=== PATIENT | male | born 1965 | race Caucasian/White ===

== ENCOUNTER 2019-05-15 22:48 | Emergency (ER) | payer MEDICAID ==
[~2019-05-15] VITALS: Ht 177.8 cm; Wt 99.8 kg
[~2019-05-15 22:48] MED LIST: AMLO5TAB15 PO; CIPR-173 PO
[2019-05-15 23:58] LABS: Basophils # (auto) 0.1 10 ^3/uL (0-0.2); Basophils % (auto) 0.7 % (0.0-2.0); Eosinophils # (auto) 0.3 10 ^3/uL (0-0.8); Eosinophils % (auto) 3.2 % (0.0-7.0); Hematocrit 43.9 % (41.0-53.0); Hemoglobin 13.7 g/dL (13.5-17.5); Lymphocytes % (auto) 12.1 % (10.0-50.0); Mean Corpuscular Hemoglobin 23.1 pg (28.0-32.0); Mean Corpuscular Hgb Conc. 31.2 g/dL (32.0-36.0); Mean Corpuscular Volume 74.1 fL (80.0-100.0); Monocytes # (auto) 0.8 10 ^3/uL (0-1.3); Monocytes % (auto) 9.7 % (0.0-12.0); Neutrophils % (auto) 74.3 % (37.0-80.0); Nucleated Red Blood Cells % 0.1 %; Platelet Count (auto) 382 10^3/uL (140-450); Red Blood Cells 5.93 10^6/uL (4.5-5.90); Red Cell Distribution Width 16.6 % (11.8-14.3); White Blood Cell 8.1 10^3/uL (4.4-10.8)
[2019-05-16 00:14] LABS: Alanine Aminotransferase 24 U/L (16-61); Albumin 3.6 g/dL (3.4-5.0); Anion Gap 5 (5-15); Aspartate Aminotransferase 29 U/L (15-37); BUN/Creatinine Ratio 11.5; Blood Urea Nitrogen 13 mg/dL (7-18); Calcium 8.9 mg/dL (8.5-10.1); Carbon Dioxide 28 mmol/L (21-32); Chloride 106 mmol/L (98-107); GFR African American 87 mL/min; GFR Non-African American 72 mL/min; Glucose 110 mg/dL (74-106); Sodium 139 mmol/L (136-145)
[2019-05-16 00:19] LABS: Alkaline Phosphatase 95 U/L (45-117); Bilirubin, Total 0.4 mg/dL (0.2-1.0); Total Protein 8.1 g/dL (6.4-8.2)
[2019-05-16] MEDS ORDERED: SODIUM CHLORIDE 0.9% 2,000 ML IV ONE (04:00)
[2019-05-16 05:33] VITALS: BP 162/111
== END 2019-05-16 06:02 | disposition home or self-care (01) ==
LOC: EDBD 22:48 → ER 22:51
DX: F12.10 Cannabis abuse, uncomplicated (principal); R22.9 Localized swelling, mass and lump, unspecified; R53.1 Weakness; E11.9 Type 2 diabetes mellitus without complications; I10 Essential (primary) hypertension
CPT/HCPCS: 36415; 70450; 71045; 80053; 84484; 85025; 93005

== ENCOUNTER → 2019-08-04 | Emergency (ER) | payer MEDICAID ==
[~2019-08-04] VITALS: Ht 177.8 cm; Wt 99.8 kg
[2019-08-04 16:53] VITALS: BP 102/83
[2019-08-04 18:22] LABS: Basophils # (auto) 0 10 ^3/uL (0-0.2); Eosinophils # (auto) 0 10 ^3/uL (0-0.8); Hemoglobin 13.2 g/dL (13.5-17.5); Nucleated Red Blood Cells % 0.1 %
[2019-08-04 18:23] LABS: Basophils % (auto) 0.2 % (0.0-2.0); Eosinophils % (auto) 0.1 % (0.0-7.0); Hematocrit 42.8 % (41.0-53.0); Lymphocytes # (auto) 0.4 10 ^3/uL (0.4-5.4); Lymphocytes % (auto) 2.1 % (10.0-50.0); Mean Corpuscular Hemoglobin 21.1 pg (28.0-32.0); Mean Corpuscular Hgb Conc. 30.9 g/dL (32.0-36.0); Mean Corpuscular Volume 68.4 fL (80.0-100.0); Monocytes # (auto) 1.9 10 ^3/uL (0-1.3); Monocytes % (auto) 9.4 % (0.0-12.0); Neutrophils # (auto) 17.7 10 ^3/uL (1.6-8.6); Neutrophils % (auto) 88.2 % (37.0-80.0); Platelet Count (auto) 536 10^3/uL (140-450); Red Blood Cells 6.26 10^6/uL (4.5-5.90); Red Cell Distribution Width 17.8 % (11.8-14.3); White Blood Cell 20.1 10^3/uL (4.4-10.8)
[2019-08-04 18:36] LABS: Anion Gap 10 (5-15); Blood Urea Nitrogen 34 mg/dL (7-18); Calcium 9.3 mg/dL (8.5-10.1); Carbon Dioxide 25 mmol/L (21-32); Chloride 100 mmol/L (98-107); Glucose 135 mg/dL (74-106); Potassium 3.7 mmol/L (3.5-5.1); Sodium 135 mmol/L (136-145)
[2019-08-04 18:42] LABS: Alanine Aminotransferase 14 U/L (16-61); Alkaline Phosphatase 127 U/L (45-117); Aspartate Aminotransferase 14 U/L (15-37); BUN/Creatinine Ratio 16.4; Bilirubin, Total 1.6 mg/dL (0.2-1.0); GFR African American 43 mL/min; GFR Non-African American 36 mL/min; Total Protein 8.4 g/dL (6.4-8.2)
[2019-08-04 20:44] LABS: Albumin 2.8 g/dL (3.4-5.0)
== END | disposition left against medical advice (07) ==
LOC: ER 16:29
DX: R10.84 Generalized abdominal pain (principal); Z53.21 Procedure and treatment not carried out due to patient leaving prior to being seen by health care provider
CPT/HCPCS: 36415; 74176; 80053; 84484; 85025; 93005

== ENCOUNTER 2019-08-05 09:49 | Inpatient (IN) | payer MEDICAID ==
[~2019-08-05] VITALS: Ht 177.8 cm; Wt 74.6 kg
[2019-08-05] MEDS ORDERED: cefTRIAXone 1GM/50ML D5W 50 ML IV ONE (10:45)
[2019-08-05 11:10] LABS: Basophils # (auto) 0 10 ^3/uL (0-0.2); Eosinophils # (auto) 0 10 ^3/uL (0-0.8); Eosinophils % (auto) 0.1 % (0.0-7.0); Neutrophils # (auto) 10.4 10 ^3/uL (1.6-8.6); Nucleated Red Blood Cells % 0.1 %
[2019-08-05 11:12] LABS: Basophils % (auto) 0.2 % (0.0-2.0); Hematocrit 40.6 % (41.0-53.0); Hemoglobin 12.6 g/dL (13.5-17.5); Lymphocytes # (auto) 0.5 10 ^3/uL (0.4-5.4); Lymphocytes % (auto) 4.3 % (10.0-50.0); Mean Corpuscular Volume 67.7 fL (80.0-100.0); Monocytes # (auto) 1.7 10 ^3/uL (0-1.3); Monocytes % (auto) 13.2 % (0.0-12.0); Neutrophils % (auto) 82.2 % (37.0-80.0); Platelet Count (auto) 595 10^3/uL (140-450); Red Blood Cells 5.99 10^6/uL (4.5-5.90); White Blood Cell 12.7 10^3/uL (4.4-10.8)
[2019-08-05 11:24] LABS: Calcium 8.7 mg/dL (8.5-10.1); Potassium 3.2 mmol/L (3.5-5.1)
[2019-08-05 11:28] LABS: BUN/Creatinine Ratio 26.6; Bilirubin, Total 1.1 mg/dL (0.2-1.0); Total Protein 8.3 g/dL (6.4-8.2)
[2019-08-05] MEDS ORDERED: SODIUM CHLORIDE 0.9% 1,000 ML IV ONE ×3 (11:50→13:00)
[2019-08-05 12:45] LABS: Albumin 2.6 g/dL (3.4-5.0)
[2019-08-05] MEDS ORDERED: ACETAMINOPHEN 325 MG TAB PO PRN (13:00)
[2019-08-05] MEDS ORDERED: NITROGLYCERIN 0.4 MG SL TAB SL PRN (13:00)
[2019-08-05] MEDS ORDERED: MORPHINE SULF INJ 2 MG/ML SYRINGE 1ML IV PRN (13:00)
[2019-08-05] MEDS: metroNIDAZOLE 500MG/100ML 100 ML IV SCH ×2 (14:00→22:21)
[2019-08-05] MEDS: PIPERACILLIN-TAZOB 3.375GM 100 ML IV SCH ×2 (18:45→23:58)
[2019-08-05] MEDS: MORPHINE SULF INJ 2 MG/ML SYRINGE 1ML IV PRN (19:46)
[2019-08-05] MEDS: ONDANSETRON HCL 4 MG/2 ML VIAL IV PRN (19:46)
[2019-08-05 21:00] VITALS: BP 121/88
--- NOTE | 2019-08-05 21:00 | NUR ---
Telemetry admit from ER MILLIE COSTA admitted to Telemetry unit. Patient oriented to Jaja Alvarez, primary RN, unit, room, bed, and unit policies regarding patient care and visiting hours. Patient now on continuous telemetry monitoring, tele box #39 and telemetry reading on arrival to unit is Sinus Tachycardia 106bpm. Patient placed on bedside oxygen 2LNC, weighed by bed scale and encouraged to call if they need something. All questions and concerns addressed, patient verbalized understanding. Note: Patient is awake and alert x4. NGT to left nare, clamped at this time.
[2019-08-05 22:00] VITALS: BP 121/88
--- NOTE | 2019-08-05 23:55 | NUR ---
Family updated on pt status Spoke to patient's daughter after password verification, updated on patient's status and condition. All questions and concerns addressed, verbalized understanding.
--- NOTE | 2019-08-06 00:53 | NUR ---
URINE SAMPLE SENT TO LAB PATIENT VOIDED 300ML OF FRANCISCO JAVIER COLORED URINE VIA URINAL. URINE SAMPLE COLLECTED AND SENT TO LAB ORDERED.
[2019-08-06 01:18] LABS: Urine Amorphous Crystal FEW /hpf (None Seen); Urine Bacteria NONE SEEN /hpf (None Seen); Urine Blood Negative /uL (Negative); Urine Hyaline Cast FEW /lpf (0 - 2); Urine Mucus FEW (None Seen); Urine Specific Gravity 1.027 (1.001-1.035); Urine WBC 7 /hpf (0 - 3)
[2019-08-06 05:00] VITALS: BP 135/97
[2019-08-06] MEDS: metroNIDAZOLE 500MG/100ML 100 ML IV SCH ×2 (05:10→13:08)
[2019-08-06] MEDS: PIPERACILLIN-TAZOB 3.375GM 100 ML IV SCH ×3 (06:15→18:10)
--- NOTE | 2019-08-06 06:20 | NUR ---
NGT OUTPUT FOR SHIFT TOTAL OF 400ML BROWN/GREEN OUTPUT NOTED IN SUCTION CONTAINER. NGT REMAINS OF LIS, PATIENT TOLERATING WELL. NGT MEASUREMENT REMAINS AT 65CM TO LEFT NARE.
[2019-08-06 06:50] LABS: Eosinophils % (auto) 0.6 % (0.0-7.0); Monocytes # (auto) 1.1 10 ^3/uL (0-1.3)
[2019-08-06 06:52] LABS: Basophils # (auto) 0.1 10 ^3/uL (0-0.2); Basophils % (auto) 0.7 % (0.0-2.0); Eosinophils # (auto) 0 10 ^3/uL (0-0.8); Hematocrit 36.5 % (41.0-53.0); Hemoglobin 11.5 g/dL (13.5-17.5); Lymphocytes # (auto) 0.6 10 ^3/uL (0.4-5.4); Lymphocytes % (auto) 7.1 % (10.0-50.0); Mean Corpuscular Hemoglobin 21.3 pg (28.0-32.0); Mean Corpuscular Hgb Conc. 31.4 g/dL (32.0-36.0); Mean Corpuscular Volume 67.7 fL (80.0-100.0); Neutrophils # (auto) 6.5 10 ^3/uL (1.6-8.6); Neutrophils % (auto) 78.6 % (37.0-80.0); Platelet Count (auto) 528 10^3/uL (140-450); Red Cell Distribution Width 17.7 % (11.8-14.3); White Blood Cell 8.2 10^3/uL (4.4-10.8)
[2019-08-06 07:07] LABS: Albumin 2.2 g/dL (3.4-5.0); Calcium 8.6 mg/dL (8.5-10.1); Magnesium 2.8 mg/dL (1.6-2.6)
[2019-08-06 07:11] LABS: BUN/Creatinine Ratio 32.2; Bilirubin, Total 0.9 mg/dL (0.2-1.0); Total Protein 7.2 g/dL (6.4-8.2)
--- NOTE | 2019-08-06 07:20 | NUR ---
Opening Shift Note Assumed care of patient, alert and oriented x4. Respirations are even and unlabored. No S/S of distress/SOB. Patient reporting abdominal discomfort at this time. This nurse educated patient on pain management options, patient verbalized understanding. NGT to L nares is set to LIS with green fluid collected in suction canister. Bed is low, locked with 2x side rails up. Call light is within reach. Instructed on POC and to call for assist PRN, will continue to monitor for changes Q1hr and PRN.
[2019-08-06 09:00] VITALS: BP 131/85
[2019-08-06] MEDS: ENOXAPARIN SOD 40 MG/0.4 ML SYRINGE SC SCH (10:00)
[2019-08-06] MEDS: MORPHINE SULF INJ 2 MG/ML SYRINGE 1ML IV PRN ×2 (10:18→20:10)
--- NOTE | 2019-08-06 12:00 | NUR ---
Dr. Jared Mora at bedside Dr. Jt Mora at bedside updating patient on POC. MD. Mora informed patient of CT abdomen results; patient verbalized understanding. New orders received for nutrition (see orders). Will continue to monitor.
[2019-08-06] MEDS ORDERED: CLINIMIX PER PHARMACY 0 ML IV SCH (12:15)
--- NOTE | 2019-08-06 12:38 | NUR ---
IV insertion (R) FA IV access obtained, via clean sterile technique by inserting a 20 gauge catheter to the right forearm after 1 attempt(s). IV secured properly. No trauma to site. Patient tolerated well.
--- NOTE | 2019-08-06 12:40 | NUR ---
NGT OUTPUT Total output including shaper set up operator 800ml. Suction canister changed at this time. Will continue to monitor.
[2019-08-06] MEDS ORDERED: AMINO ACID INFUSION IN D5W 2,000 ML IV NR ×2 (12:45→20:00)
[2019-08-06 13:00] VITALS: BP 140/94
--- NOTE | 2019-08-06 13:06 | NUR ---
Nutrition Assessment Notes Please refer to link for full assessment notes. Est Energy needs: 9543-7304 kcals (20-23 kcal/kgBW) Est Protein needs: 75-94 gms/day (0.8-1.0 gm/kgBW) Will continue to monitor and reassess prn. Addendum: 08/06/19 at [address] Amended: Links added. Addendum: 08/07/19 at [address] Nutrition Consult/Followup Notes PLEASE NOTE: Pt is scheduled for TPN to run @ 50ml/hr, providing 648 kcals, 60g protein and 408 NPCs. Pt with inadequate energy intake from PN support aeb 30% to 35% of est caloric needs. Protein intake from PN support is inadequate aeb 64% to 80% protein needs. Please refer to full Assessment notes dated 08/06/19 for further details.
[2019-08-06] MEDS ORDERED: FLEET ENEMA(ADULT) 135 ML PR ONE (13:45)
--- NOTE | 2019-08-06 14:05 | NUR ---
Dr. Tacos Mendez at bedside updating patient on POC. No new orders received.
[2019-08-06] MEDS ORDERED: MIDAZOLAM HCL 5 MG/ML-1ML VIAL ONE (14:07)
[2019-08-06] MEDS ORDERED: SODIUM CHLORIDE LOCK 10 ML ONE (14:07)
[2019-08-06] MEDS ORDERED: diphenhdrAMINE HCL 50 MG/1 ML VL ONE (14:08)
[2019-08-06] MEDS ORDERED: fentaNYL CITRATE 100 MCG/2 ML VL ONE (14:08)
--- NOTE | 2019-08-06 14:15 | NUR ---
Dr. Ulloa at bedside Dr. Ulloa at bedside updating patient on POC. No new orders received at this time. Will continue to monitor.
--- NOTE | 2019-08-06 14:35 | NUR ---
Fleet enema Fleet enema given as ordered per MD. Patient tolerated well. Will continue to monitor.
--- NOTE | 2019-08-06 14:41 | NUR ---
Patient off unit Taken to GI lab for scheduled procedure with Dr. Jt Mora. NGT clamped. No distress noted upon departure.
--- NOTE | 2019-08-06 15:50 | NUR ---
Patient back in room Patient back from procedure with Dr. Jt Mora. Respirations are even and unlabored. No s/s of distress noted or stated. NGT set to LIS and draining dark brown fluid. Bed is low, locked with 2x side rails up. Call light is within reach. Will continue to monitor.
[2019-08-06 17:00] VITALS: BP 138/91
[2019-08-06] MEDS: InsuLIN REG 1unit/0.01ml Soln (100units/ml) SC SCH (18:00)
[2019-08-06] MEDS ORDERED: DEXTROSE (50%) 50ML SYRG IV SCH (18:00)
[2019-08-06] MEDS: ACCU-CHEK COMFORT CURVE STRIP VI SCH (18:00)
--- NOTE | 2019-08-06 19:00 | NUR ---
Opening Shift Note Assumed care of patient, awake and alert. No S/S of distress/SOB. Patient complains of abdominal pain. Patient in the lowest possible position with bed rails up x2 and call light within reach. NG tube in place, canister has 100ml fluid at beginning of shift. Will continue to monitor. Instructed on POC and to call for assist PRN, will continue to monitor for changes Q1hr and PRN.
--- NOTE | 2019-08-06 19:30 | NUR ---
MD Brooke Mora at bedside. Orders to obtain consent for exploratory laparotomy, possible bowel resection, possible colostomy. Orders will be inputted and carried out. All labs to be drawn.
[2019-08-06 20:00] VITALS: BP 132/86
[2019-08-06 22:22] VITALS: BP 132/86
[2019-08-07] MEDS: PIPERACILLIN-TAZOB 3.375GM 100 ML IV SCH ×4 (00:05→21:40)
[2019-08-07] MEDS: ACCU-CHEK COMFORT CURVE STRIP VI SCH ×4 (00:05→18:43)
[2019-08-07] MEDS: MORPHINE SULF INJ 2 MG/ML SYRINGE 1ML IV PRN ×4 (00:06→20:36)
--- NOTE | 2019-08-07 05:00 | NUR ---
NG canister changed. 1900 starting point was 100ml, at 0500 patient had 425ml in canister. Total output 325ml.
--- NOTE | 2019-08-07 05:00 | NUR ---
Patient cleaned with a chlorhexidine bath, sheets and linens changed. Patient is prepped for surgery. Consents are signed. Patient has no questions at this time.
[2019-08-07 05:22] VITALS: BP 126/79
[2019-08-07] MEDS: InsuLIN REG 1unit/0.01ml Soln (100units/ml) SC SCH ×4 (05:22→18:00)
--- NOTE | 2019-08-07 05:23 | NUR ---
Patient blood sugar was 133mg/dl. Patient stated that he did not want to take insulin. Told patient if it gets higher he will need to take insulin because he is receiving the clinimix. Patient agreed. No insulin given at this time.
[2019-08-07 06:58] LABS: Basophils # (auto) 0 10 ^3/uL (0-0.2); Basophils % (auto) 0.3 % (0.0-2.0); Hemoglobin 11.6 g/dL (13.5-17.5); Nucleated Red Blood Cells % 0.1 %
[2019-08-07 07:00] LABS: Eosinophils # (auto) 0 10 ^3/uL (0-0.8); Eosinophils % (auto) 0.3 % (0.0-7.0); Hematocrit 37.5 % (41.0-53.0); Lymphocytes # (auto) 0.8 10 ^3/uL (0.4-5.4); Lymphocytes % (auto) 7.2 % (10.0-50.0); Mean Corpuscular Hgb Conc. 30.8 g/dL (32.0-36.0); Monocytes % (auto) 9.7 % (0.0-12.0); Neutrophils # (auto) 8.7 10 ^3/uL (1.6-8.6); Neutrophils % (auto) 82.5 % (37.0-80.0); Platelet Count (auto) 665 10^3/uL (140-450); Red Blood Cells 5.52 10^6/uL (4.5-5.90); Red Cell Distribution Width 18.3 % (11.8-14.3); White Blood Cell 10.5 10^3/uL (4.4-10.8)
[2019-08-07 07:19] LABS: Potassium 3.1 mmol/L (3.5-5.1)
[2019-08-07 07:30] LABS: Albumin 2.3 g/dL (3.4-5.0); BUN/Creatinine Ratio 28.7; Bilirubin, Total 0.8 mg/dL (0.2-1.0); Calcium 8.6 mg/dL (8.5-10.1); Magnesium 2.5 mg/dL (1.6-2.6); Phosphorus 3.1 mg/dL (2.5-4.90); Pre Albumin 7.8 mg/dL (20.0-40.0); Total Protein 7.2 g/dL (6.4-8.2)
[2019-08-07 08:14] LABS: INR 1.2 (0.9-1.15); Partial Thromboplastin Time 30.5 sec (23.64-32.05)
[2019-08-07 09:00] VITALS: BP 123/76
[2019-08-07] MEDS: ENOXAPARIN SOD 40 MG/0.4 ML SYRINGE SC SCH (09:48)
[2019-08-07] MEDS: POTASSIUM CHL 20MEQ/100ML 100 ML IV SCH ×2 (12:40→13:45)
[2019-08-07] MEDS ORDERED: PPN PER PHARMACY 0 ML IV SCH (12:45)
[2019-08-07 13:00] VITALS: BP 151/97
--- NOTE | 2019-08-07 13:28 | NUR ---
Patient taken to PACU via bed. NG tube clamped. Consents and surgical checklist in chart.
[2019-08-07] MEDS ORDERED: HYDROmorphone HCL 2 MG/ML VL ONE ×2 (13:45→17:42)
[2019-08-07] MEDS ORDERED: fentaNYL CITRATE 100 MCG/2 ML VL ONE ×3 (13:45→16:18)
[2019-08-07] MEDS ORDERED: fentaNYL CITRATE 5 ML ONE (13:45)
[2019-08-07] MEDS ORDERED: ETOMIDATE (2MG/ML) 20ML VIAL IV ONE (13:45)
[2019-08-07] MEDS ORDERED: MIDAZOLAM HCL 1MG/1ML-2 ML VIAL ONE (13:45)
[2019-08-07] MEDS ORDERED: ROCURONIUM 10MG/ML 10ML VIAL IV ONE (15:39)
[2019-08-07] MEDS ORDERED: POTASSIUM CHL 20MEQ/100ML 100 ML IV ONE (15:45)
[2019-08-07] MEDS ORDERED: KETOROLAC TROMETH 30 MG/ML 1ML VIAL IV ONE (17:45)
[2019-08-07] MEDS ORDERED: ONDANSETRON HCL 4 MG/2 ML VIAL IV PRN (17:45)
[2019-08-07] MEDS ORDERED: MIDAZOLAM HCL 1MG/1ML-2 ML VIAL IV PRN (17:45)
[2019-08-07] MEDS ORDERED: HYDROmorphone HCL 2 MG/ML VL IV PRN (17:45)
[2019-08-07] MEDS ORDERED: MORPHINE SULF INJ 2 MG/ML SYRINGE 1ML IV PRN (17:45)
[2019-08-07] MEDS ORDERED: LABETALOL HCL 5 MG/ML 4ML SYRINGE IV PRN (17:45)
[2019-08-07] MEDS ORDERED: ePHEDrine SULFATE 50 MG/ML AMP IV PRN (17:45)
[2019-08-07 19:30] LABS: Eosinophils # (auto) 0 10 ^3/uL (0-0.8); Hemoglobin 12.6 g/dL (13.5-17.5); Lymphocytes # (auto) 0.4 10 ^3/uL (0.4-5.4); Nucleated Red Blood Cells % 0.1 %
[2019-08-07 19:32] LABS: Basophils # (auto) 0 10 ^3/uL (0-0.2); Basophils % (auto) 0.1 % (0.0-2.0); Hematocrit 42.7 % (41.0-53.0); Lymphocytes % (auto) 1.9 % (10.0-50.0); Mean Corpuscular Hemoglobin 20.8 pg (28.0-32.0); Mean Corpuscular Hgb Conc. 29.4 g/dL (32.0-36.0); Mean Corpuscular Volume 70.7 fL (80.0-100.0); Monocytes # (auto) 0.5 10 ^3/uL (0-1.3); Monocytes % (auto) 2.7 % (0.0-12.0); Neutrophils # (auto) 18.7 10 ^3/uL (1.6-8.6); Neutrophils % (auto) 95.3 % (37.0-80.0); Platelet Count (auto) 706 10^3/uL (140-450); Red Blood Cells 6.04 10^6/uL (4.5-5.90); Red Cell Distribution Width 19.8 % (11.8-14.3); White Blood Cell 19.7 10^3/uL (4.4-10.8)
[2019-08-07 19:41] LABS: BUN/Creatinine Ratio 27.2; Calcium 7.7 mg/dL (8.5-10.1); Potassium 4.1 mmol/L (3.5-5.1)
[2019-08-07 19:45] VITALS: BP 127/85
[2019-08-07] MEDS: PPN PER PHARMACY IV NR ×10 (20:00)
--- NOTE | 2019-08-07 21:09 | NUR ---
Admit to [facility] admitted to [facility] via gurney on classroom monitor, and portable 02. Patient transfered to bed, connected to unit monitoring and oxygen, and weighed by [facility]. Patient oriented to Ernestina Vallejo, primary RN, unit, room, bed, and unit policies regarding patient care and visiting hours. All questions and concerns addressed, patient verbalized understanding. Addendum: 08/07/19 at 2113 by Ernestina Vallejo RN Pt admitted at 5.
--- NOTE | 2019-08-07 21:14 | NUR ---
Stable at this time. Attached to LIS with his NGT. Hagen to gravity. IV tko. Pain medication given at 2014, will continue to monitor.
[2019-08-08] VITALS: BP 132/89
[2019-08-08] MEDS: MORPHINE SULF INJ 2 MG/ML SYRINGE 1ML IV PRN ×4 (00:34→14:12)
[2019-08-08] MEDS: PIPERACILLIN-TAZOB 3.375GM 100 ML IV SCH ×4 (01:48→18:30)
[2019-08-08 03:28] LABS: Phosphorus 5.6 mg/dL (2.5-4.90)
[2019-08-08 03:47] LABS: Chloride 108 mmol/L (98-107); Potassium 4.1 mmol/L (3.5-5.1); Sodium 140 mmol/L (136-145)
[2019-08-08 03:48] LABS: Alanine Aminotransferase 16 U/L (16-61); Albumin 1.8 g/dL (3.4-5.0); Alkaline Phosphatase 76 U/L (45-117); Anion Gap 6 (5-15); Aspartate Aminotransferase 23 U/L (15-37); BUN/Creatinine Ratio 35.3; Bilirubin, Total 1.1 mg/dL (0.2-1.0); Blood Urea Nitrogen 30 mg/dL (7-18); Calcium 8.1 mg/dL (8.5-10.1); Carbon Dioxide 26 mmol/L (21-32); GFR African American 121 mL/min; GFR Non-African American 100 mL/min; Glucose 163 mg/dL (74-106)
[2019-08-08 03:49] LABS: Magnesium 2.3 mg/dL (1.6-2.6)
[2019-08-08 04:00] VITALS: BP 130/91
[2019-08-08] MEDS: InsuLIN REG 1unit/0.01ml Soln (100units/ml) SC SCH ×4 (06:00→18:00)
[2019-08-08] MEDS: ACCU-CHEK COMFORT CURVE STRIP VI SCH ×4 (06:03→18:29)
[2019-08-08] MEDS: PPN PER PHARMACY IV NR ×10 (08:21)
[2019-08-08] MEDS: ENOXAPARIN SOD 40 MG/0.4 ML SYRINGE SC SCH (10:05)
--- NOTE | 2019-08-08 11:55 | NUR ---
HOSPITALIST AT BEDSIDE DR RENNER UPDATED ON PATIENT'S STATUS. DR RENNER STATED HE ORDERED PICC LINE PLACEMENT YESTERDAY AND NOTIFIED RN AT THAT TIME. THIS NURSE NOTIFIED MD THAT PICC LINE PLACEMENT WILL BE REQUESTED TODAY. DR DISCUSSED PLAN OF CARE WITH PATIENT, PATIENT VERBALIZED UNDERSTANDING. WILL CONTINUE TO MONITOR.
--- NOTE | 2019-08-08 12:17 | NUR ---
PAGED PICC LINE NURSE TO NOTIFY OF [facility] REQUEST FOR PICC LINE INSERTION.
--- NOTE | 2019-08-08 12:19 | NUR ---
OPENING SHIFT NOTE REPORT RECEIVED FROM TECHNOLOGY LEAD RN, MORNING ASSESSMENT PERFORMED AND DOCUMENTED. 53 YEAR OLD MALE, RESTING IN BED, ALERT AND ORIENTED X4, NO DISTRESS NOTED, RESPIRATIONS EVEN AND UNLABORED. PATIENT REPORTS SOME DISCOMFORT TO HIS BACK AT THIS TIME AND ASKED NURSE IF HE CAN REPOSITION HIMSELF ON SIDE. THIS NURSE ASSISTED PATIENT TO TURN TO RIGHT SIDE AND PILLOW APPLIED TO BACK FOR COMFORT AND SUPPORT. PATIENT TOLERATED WELL. PLAN OF CARE WITH DISCUSSED WITH PATIENT, PATIENT VERBALIZED UNDERSTANDING. FALL AND SAFETY PRECAUTIONS IN PLACE. Addendum: 08/08/19 at 1910 by Rebekah Motley RN CORRECTION: TIME INCORRECT, PATIENT ASSESSED AT 0735.
--- NOTE | 2019-08-08 12:30 | NUR ---
Family updated on pt status Family of MILLIE COSTA updated on patient's status and condition after password verification. All questions and concerns addressed. Patient's mother Domi verbalized understanding.
--- NOTE | 2019-08-08 14:04 | NUR ---
PICC LINE PLACEMENT STATUS 1300: NOTIFIED LOG SAWYER OR PENDING PICC LINE PLACEMENT, YESSI NOTIFIED THIS NURSE THAT PICC LINE NURSE IS NOT [employer] THIS WEEKEND, THEREFORE PICC LINE WILL NOT BE PLACED. PAGED DR RENNER TO NOTIFY OF NO PICC LINE PLACEMENT AND CONSULTED DR RUSH, PULMONOLOGY TO SEE IF HE CAN PLACE CENTRAL LINE PER PRIOR CONVERSATION WITH DR RENNER, DR RUSH STATED HE WOULD TRY TO PLACE CENTRAL LINE TODAY HE HAS MULTIPLE PROCEDURES TO DO. AWAITING DR RENNER'S CALL.
--- NOTE | 2019-08-08 15:15 | NUR ---
SPOKE WITH SURGEON DR Brooke DSOUZA REPORTED PATIENT PAIN LEVEL AND MORPHINE NO LONGER PROVIDING RELIEF. ORDES FOR DILAUDID 1 MG IV Q4H PRN RECEIVED AND WILL BE CARRIED OUT. MD ALSO PROVIDED WITH UPDATED STATUS AND AWARE OF PATIENT AMBULATION AND SITTING UP IN BEDSIDE CHAIR WITH PHYSICAL THERAPY ASSISTANCE.
[2019-08-08] MEDS: HYDROmorphone HCL 2 MG/ML VL IV PRN ×2 (16:26→20:33)
--- NOTE | 2019-08-08 17:05 | NUR ---
DR Brooke DSOUZA AT BEDSIDE DR DSOUZA UPDATED ON PATIENT'S STATUS AND DR RENNER'S RECOMMENDATIONS OF CENTRAL LINE OR PICC LINE. DR DSOUZA ALSO AWARE OF PATIENT AMBULATION AND OOB. DR DSOUZA VERBALIZED UNDERSTANDING AND DISCUSSED PLAN OF CARE WITH PATIENT, REGARDING CENTRAL LINE - DR DSOUZA STATED "NO CENTRAL LINE, WAIT UNTIL TOMORROW FOR PICC LINE". DR DSOUZA ASSESSED SURGICAL SITE AND MINIMAL SEROUS SANGUINOUS DRAINAGE FROM COLOSTOMY BAG. STRICT NPO ORDERS RECEIVED AND PATIENT VERBALIZED UNDERSTANDING.
--- NOTE | 2019-08-08 17:40 | NUR ---
VALUABLES PATIENT IRVIN CHILD WITH $1412.00 FANG [facility] TO [facility] BY MARY DICKSONRELIGIOUS HEALER. VALUABLES FORM FILED IN CHART AND COPY GIVEN TO PATIENT.
--- NOTE | 2019-08-08 18:00 | NUR ---
PHARMACY NOTIFIED OF NO CENTRAL LINE PLACEMENT PER DR Brooke DSOUZA AND NO TPN WILL BE ADMINISTERED AT THIS TIME ONLY PPN DUE TO PERIPHERAL LINES ONLY - PENDING PICC LINE INSERTION FOR TOMORROW. PHARMACISTS VERBALIZED UNDERSTANDING.
[2019-08-08 20:00] VITALS: BP 124/80
[2019-08-08] MEDS: TPN PER PHARMACY IV NR ×11 (20:00)
[2019-08-09] VITALS (7 sets, daily range): BP systolic 113–132; BP diastolic 73–87
[2019-08-09] MEDS: PIPERACILLIN-TAZOB 3.375GM 100 ML IV SCH ×4 (00:37→18:04)
[2019-08-09] MEDS: HYDROmorphone HCL 2 MG/ML VL IV PRN ×5 (00:38→20:08)
[2019-08-09 03:39] LABS: Basophils # (auto) 0 10 ^3/uL (0-0.2); Basophils % (auto) 0.1 % (0.0-2.0); Eosinophils # (auto) 0 10 ^3/uL (0-0.8); Hematocrit 33.6 % (41.0-53.0); Lymphocytes # (auto) 1.1 10 ^3/uL (0.4-5.4); Lymphocytes % (auto) 5.9 % (10.0-50.0); Mean Corpuscular Hgb Conc. 29.9 g/dL (32.0-36.0); Mean Corpuscular Volume 70.3 fL (80.0-100.0); Monocytes # (auto) 1.5 10 ^3/uL (0-1.3); Monocytes % (auto) 8.1 % (0.0-12.0); Neutrophils # (auto) 16.3 10 ^3/uL (1.6-8.6); Neutrophils % (auto) 85.9 % (37.0-80.0); Nucleated Red Blood Cells % 0.1 %; Platelet Count (auto) 651 10^3/uL (140-450); Red Blood Cells 4.78 10^6/uL (4.5-5.90); Red Cell Distribution Width 19.5 % (11.8-14.3)
[2019-08-09 03:51] LABS: INR 1.21 (0.9-1.15); Partial Thromboplastin Time 30.2 sec (23.64-32.05)
[2019-08-09 03:54] LABS: Albumin 1.8 g/dL (3.4-5.0); Magnesium 2.5 mg/dL (1.6-2.6); Potassium 4.1 mmol/L (3.5-5.1)
[2019-08-09 03:58] LABS: BUN/Creatinine Ratio 34.2; Bilirubin, Total 0.9 mg/dL (0.2-1.0); Phosphorus 2.6 mg/dL (2.5-4.90); Total Protein 5.9 g/dL (6.4-8.2)
[2019-08-09] MEDS: InsuLIN REG 1unit/0.01ml Soln (100units/ml) SC SCH ×4 (06:00→18:00)
[2019-08-09] MEDS: ACCU-CHEK COMFORT CURVE STRIP VI SCH ×4 (06:18→18:03)
[2019-08-09] MEDS: ENOXAPARIN SOD 40 MG/0.4 ML SYRINGE SC SCH (08:58)
--- NOTE | 2019-08-09 11:12 | NUR ---
PICC LINE NURSE AT BEDSIDE
--- NOTE | 2019-08-09 11:48 | NUR ---
Nutrition Followup Note Wt 98 kg Pt with colostomy bag. Per RN pt to continue to receive TPN . TPN rate is set to run at 50 ml/hr to provide 648 calories, 60g protein 408 NPCs. Pt with inadequate energy intake from PN support aeb 30% to 35% of est caloric needs. Protein intake from PN support is inadequate aeb 64% to 80% protein needs. Est Energy needs: 0777-4143 kcals (20-23 kcal/kgBW) Est Protein needs: 75-94 gms/day (0.8-1.0 gm/kgBW) Will continue to monitor and reassess prn. Labs: BUN 27H, Ca 8.0L, Alb 1.8L BM: 850 ml gastric drainage 08/08 per RN doc Skin: BS 16 mod risk, full details in medicare sales executive doc PES: 1) Increased nutrient needs r/t pt with no PO intake aeb pt currently NPO 2) Altered nutrition related lab values r/t current medical condition aeb hyperglycemia, severe albuminemia Comments Will continue to closely monitor pertinent labs, PO intake and skin status prn. Will followup in 2-3 days 1) Consider increasing TPN support to me >75% of needs 2)Gradually advance pt to oral CCHO 60g diet when medically feasible and as tolerated 3) Once oral diet is initiated, if albumin continues trending down, consider Prostat 1 pkt BID 4) Continue current plan of care Expected Outcomes/Goals: Pt to advance to oral diet Pt labs to improve
[2019-08-09] MEDS ORDERED: LIDOCAINE 1% (LOCAL ANESTH.) PF 5ml SDV ID ONE (12:00)
--- NOTE | 2019-08-09 12:00 | NUR ---
PICC line placement Patient educated on need for PICC line placement. All risks and benefits explained and all questions and concerns addressed prior to procedure. Noted past medical history and allergies with no contraindications. INR and Plt counts within acceptable range. 5 fr PICC line inserted via right basilic vein using [employer] US and Tip Location System. Sterile technique with maximum barrier precautions utilized. Blood return obtained from each of the 2 lumens and each flushed easily with NS using proper technique. PICC secured with Stat-lock; biodisc and occlusive dressing applied. Stat portable chest x-ray obtained for PICC tip placement. *Baseline Arm Circumference 31 cm. Internal length 45 cm. External length 0 cm. PICC lot #[id number]
--- NOTE | 2019-08-09 12:10 | NUR ---
Okay to use PICC line Xray completed and reviewed. Okay to use PICC line. Rebekah DUNCAN notified.
--- NOTE | 2019-08-09 12:13 | NUR ---
CONTACT PHARMACY REGARDING TPN PHARMACISTS NOTIFIED OF PICC LINE PLACEMENT AND PENDING TPN IN REFRIGERATOR TO ADMINISTER. PHARMACISTS ORDERED TPN TO BE ADMINISTERED NOW AND ENGRAVER SIGNATURE WILL GET A NEW BAG. ORDERS WILL BE CARRIED OUT.
--- NOTE | 2019-08-09 12:21 | NUR ---
TPN ADMINISTRATION SPOKE WITH DAVID, PHARMACISTS, REGARDING TEMPERATURE OF TPN JUST REMOVED FROM REFRIGERATOR. DAVID RECOMMENDED THIS NURSE WAIT ONE HOUR TO BRING TO ROOM TEMPERATURE BEFORE ADMINISTRATION.
--- NOTE | 2019-08-09 12:29 | NUR ---
PATIENT OUT OF BED PATIENT ASSISTED TO BEDSIDE CHAIR, VSS - PATIENT TOLERATED WELL. CALL LIGHT AND ALL PERSONAL BELONGINGS WITHIN REACH. PARTIAL BEDDING CHANGED.
[2019-08-09] MEDS: IRON SUCROSE COMPLEX 200 MG in SODIUM CHL 0.9% 100 ML IV SCH (12:36)
[2019-08-09] MEDS ORDERED: TPN PER PHARMACY 0 ML IV SCH (13:15)
--- NOTE | 2019-08-09 13:32 | NUR ---
PATIENT ASSISTED BACK TO BED PATIENT REQUESTING TO GO BACK TO BED, PATIENT ABLE TO TRANSFER FROM CHAIR TO BED WITH MINIMAL ASSISTANCE. FALL AND SAFETY PRECAUTIONS IN PLACE.
--- NOTE | 2019-08-09 14:00 | NUR ---
PT ALREADY UP WITH NURSING. ATTEMPT P.T. TOMORROW.
[2019-08-09] MEDS: TPN PER PHARMACY IV NR ×11 (14:02)
--- NOTE | 2019-08-09 15:59 | NUR ---
HOSPITALIST AT BEDSIDE DR RENNER UPDATED ON PATIENT'S STATUS AND ORDERS FOR TELE DOWNGRADE AND DISCONTINUE SHAW CATHETER. CHARLIE, CHARGE NURSE AWARE.
--- NOTE | 2019-08-09 16:18 | NUR ---
SALEH CATHETER DISCONTINUED Order to discontinue saleh catheter received. Saleh dc'd with clean technique following deflation of balloon a total of 525 mls of dark arsen urine emptied from saleh collection bag. Patient tolerated well with no complaints of pain. Continue care.
--- NOTE | 2019-08-09 18:00 | NUR ---
DR Brooke DSOUZA AT BEDSIDE UPDATED ON PATIENT'S STATUS, TELE DOWNGRADE AND PATIENT NO COLOSTOMY OUTPUT. DR Brooke DSOUZA ASSESSED PATIENT AND AGREED WITH TELE DOWNGRADE. DR DSOUZA ALSO AWARE OF SHAW CATHETER DISCONTINUED PER DR RENNER.
--- NOTE | 2019-08-09 18:45 | NUR ---
[facility] pt transferred to floor MILLIE COSTA transferred to via hospital bed on campus monitor and portable 02. Patient alert and oriented x4, no distress noted, respirations even and unlabored. All patient medications and personal belongings transferred with patient to receiving floor. Patient care transferred to DAKOTA Crews.
--- NOTE | 2019-08-09 18:53 | NUR ---
PATIENT BROUGHT TO ROOM 275B. NG TUBE TO THE RIGHT NARE, TO LIS. TPN RUNNING AT 64 ML/HR TO THE RIGHT PICC LINE. PATIENT DENIES PAIN. WILL CONTINUE TO MONITOR.
--- NOTE | 2019-08-09 19:13 | NUR ---
Opening Shift Note Assumed care of patient. Pt is awake, alert, and oriented x 4. No S/S of distress. Respirations are regular and non-labored; SpO2 is 100% on 2 lpm NC. Patient complains of abdominal pain. Pain will be addressed per Dr's order. L. L. abdomen colostomy bad with no stool. Bed in the lowest possible position with bed rails up x 2 and call light within reach. NG tube in R. nares connected to LIS. Will continue to monitor. Instructed on POC and to call for assist PRN. Will continue to monitor for changes Q1hr and PRN.
[2019-08-09] MEDS ORDERED: TPN PER PHARMACY IV NR ×10 (20:00)
[2019-08-09] MEDS: SODIUM CHLOR 0.9% PF (SALINE LOCK) 10ML VIAL/SYR IV SCH (22:20)
[2019-08-10] MEDS: ACCU-CHEK COMFORT CURVE STRIP VI SCH ×5 (00:01→20:11)
[2019-08-10] MEDS: PIPERACILLIN-TAZOB 3.375GM 100 ML IV SCH ×4 (00:03→17:33)
[2019-08-10] MEDS: HYDROmorphone HCL 2 MG/ML VL IV PRN ×4 (00:11→20:59)
[2019-08-10 05:00] VITALS: BP 121/77
[2019-08-10] MEDS: InsuLIN REG 1unit/0.01ml Soln (100units/ml) SC SCH ×5 (05:54→20:34)
[2019-08-10 07:01] LABS: Albumin 1.8 g/dL (3.4-5.0); Calcium 8.1 mg/dL (8.5-10.1); Magnesium 2.3 mg/dL (1.6-2.6); Potassium 3.9 mmol/L (3.5-5.1)
[2019-08-10 07:05] LABS: Bilirubin, Total 1.1 mg/dL (0.2-1.0); Phosphorus 4.3 mg/dL (2.5-4.90); Total Protein 5.9 g/dL (6.4-8.2)
[2019-08-10] MEDS: ONDANSETRON HCL 4 MG/2 ML VIAL IV PRN (09:55)
[2019-08-10] MEDS: ENOXAPARIN SOD 40 MG/0.4 ML SYRINGE SC SCH (10:00)
[2019-08-10] MEDS: SODIUM CHLOR 0.9% PF (SALINE LOCK) 10ML VIAL/SYR IV SCH ×2 (10:00→22:17)
[2019-08-10] MEDS: IRON SUCROSE COMPLEX 200 MG in SODIUM CHL 0.9% 100 ML IV SCH (11:54)
--- NOTE | 2019-08-10 12:45 | NUR ---
PT WENT DOWN FOR A PROCEDURE. HOLD P.T. TODAY.
[2019-08-10] MEDS ORDERED: LIDOCAINE 2%HCL (LOCAL ANESTH.) INJ 20ML MDV ONE (12:55)
[2019-08-10] MEDS ORDERED: fentaNYL CITRATE 100 MCG/2 ML VL ONE (13:35)
[2019-08-10] MEDS ORDERED: ceFAZolin 1GM/50ML 50 ML IV ONE (13:36)
[2019-08-10] MEDS ORDERED: MIDAZOLAM HCL 1MG/1ML-2 ML VIAL ONE (13:36)
[2019-08-10] MEDS ORDERED: HEPARIN 1,000 UNITS/ml 1ML VIAL ONE (13:51)
[2019-08-10] MEDS ORDERED: VANCOMYCIN HCL 1000 MG VL ONE (13:55)
[2019-08-10 17:10] VITALS: BP 167/88
--- NOTE | 2019-08-10 19:16 | NUR ---
Opening Shift Note Assumed care of patient. Pt is awake, alert, and oriented x 4. No S/S of respiartory distress. Respirations are regular and non-labored. Patient complains of abdominal pain. Pain will be addressed per Dr's order. L. L. abdomen colostomy bad is functional with no stool. Bed in the lowest position with bed rails up x 2, brakes are locked, and call light within reach. NG tube in R. nares connected to LIS. Urinal is at bed side. Will continue to monitor. Instructed on POC and to call for assist PRN. Will continue to monitor for changes Q1hr and PRN.
[2019-08-10] MEDS ORDERED: TPN PER PHARMACY IV NR ×9 (20:00)
[2019-08-10 22:00] VITALS: BP 127/78
[2019-08-11] MEDS: PIPERACILLIN-TAZOB 3.375GM 100 ML IV SCH ×3 (00:10→12:23)
[2019-08-11] MEDS: HYDROcodone-ACET 5/325MG TAB PO PRN ×2 (00:19→04:26)
[2019-08-11] MEDS: HYDROmorphone HCL 2 MG/ML VL IV PRN ×5 (01:38→22:29)
[2019-08-11 05:00] VITALS: BP 134/87
[2019-08-11] MEDS: ACCU-CHEK COMFORT CURVE STRIP VI SCH ×3 (05:38→17:48)
[2019-08-11] MEDS: InsuLIN REG 1unit/0.01ml Soln (100units/ml) SC SCH ×3 (06:14→17:48)
[2019-08-11 07:03] LABS: Basophils # (auto) 0.1 10 ^3/uL (0-0.2); Eosinophils # (auto) 0.3 10 ^3/uL (0-0.8); Eosinophils % (auto) 2.2 % (0.0-7.0); Lymphocytes # (auto) 0.8 10 ^3/uL (0.4-5.4)
[2019-08-11 07:05] LABS: Basophils % (auto) 0.5 % (0.0-2.0); Hematocrit 32.4 % (41.0-53.0); Hemoglobin 9.8 g/dL (13.5-17.5); Lymphocytes % (auto) 5.8 % (10.0-50.0); Mean Corpuscular Hemoglobin 21.5 pg (28.0-32.0); Mean Corpuscular Hgb Conc. 30.3 g/dL (32.0-36.0); Monocytes % (auto) 7.2 % (0.0-12.0); Neutrophils # (auto) 11.6 10 ^3/uL (1.6-8.6); Neutrophils % (auto) 84.3 % (37.0-80.0); Nucleated Red Blood Cells % 0.2 %; Platelet Count (auto) 573 10^3/uL (140-450); Red Blood Cells 4.56 10^6/uL (4.5-5.90); White Blood Cell 13.8 10^3/uL (4.4-10.8)
[2019-08-11 07:28] LABS: Albumin 1.9 g/dL (3.4-5.0); Magnesium 2.2 mg/dL (1.6-2.6); Potassium 3.8 mmol/L (3.5-5.1)
[2019-08-11 07:33] LABS: BUN/Creatinine Ratio 28.8; Bilirubin, Total 1.2 mg/dL (0.2-1.0); Total Protein 6.2 g/dL (6.4-8.2)
[2019-08-11 07:54] LABS: Red Cell Distribution Width 20.7 % (11.8-14.3)
[2019-08-11 09:00] VITALS: BP 133/94
[2019-08-11] MEDS: SODIUM CHLOR 0.9% PF (SALINE LOCK) 10ML VIAL/SYR IV SCH ×2 (09:33→22:21)
[2019-08-11] MEDS: ENOXAPARIN SOD 40 MG/0.4 ML SYRINGE SC SCH (09:34)
[2019-08-11 13:00] VITALS: BP 135/85
[2019-08-11] MEDS: IRON SUCROSE COMPLEX 200 MG in SODIUM CHL 0.9% 100 ML IV SCH (13:04)
--- NOTE | 2019-08-11 16:05 | NUR ---
Nutrition Followup Note Wt 98.0 kg Pt was sleeping with no relatives at bedside when rounded this morning. Pt on TPN @ 69 ml/hr to provide 1650 calories, 90g protein and 1290 NPCs. Pt with inadequate energy intake from PN support aeb 76% to 88% of est caloric needs. Protein intake from PN support is adequate aeb 96% to 120% protein needs. Pt with no distress per RN doc. Will continue to closely monitor pertinent labs, PO intake and skin status prn. Will followup in 2-3 days Est Energy needs: 6701-5759 kcals (20-23 kcal/kgBW) Est Protein needs: 75-94 gms/day (0.8-1.0 gm/kgBW) Will continue to monitor and reassess prn. Labs: Ca 8.0 L, Alb 1.9 L BM: Pt with no BM since 08/08 per RN doc. Skin: BS 22 low risk, full details in medication care manager doc PES: 1) Increased nutrient needs r/t pt with no PO intake aeb pt currently NPO 2) Altered nutrition related lab values r/t current medical condition aeb hyperglycemia, severe albuminemia Comments Will continue to closely monitor pertinent labs, PO intake and skin status prn. Will followup in 2-3 days 1) Consider increasing TPN support to meet >75% of needs 2) Gradually advance pt to oral CCHO 60g diet when medically feasible and as tolerated 3) Once oral diet is initiated, if albumin continues trending down, consider Prostat 1 pkt BID 4) Continue current plan of care
[2019-08-11 17:00] VITALS: BP 128/81
--- NOTE | 2019-08-11 19:30 | NUR ---
Opening Shift Note Assumed care of patient, awake and alert. No S/S of distress/SOB. Instructed on POC and to call for assist PRN, will continue to monitor for changes Q1hr and PRN.
[2019-08-11] MEDS ORDERED: TPN PER PHARMACY IV NR ×9 (20:00)
[2019-08-11 22:06] VITALS: BP 120/79
[2019-08-12] MEDS: HYDROmorphone HCL 2 MG/ML VL IV PRN ×3 (02:45→19:50)
[2019-08-12 05:00] VITALS: BP 130/79
[2019-08-12] MEDS: InsuLIN REG 1unit/0.01ml Soln (100units/ml) SC SCH ×4 (06:00→17:50)
[2019-08-12] MEDS: ACCU-CHEK COMFORT CURVE STRIP VI SCH ×4 (06:09→17:50)
[2019-08-12 06:55] LABS: Hematocrit 32.2 % (41.0-53.0); Hemoglobin 9.6 g/dL (13.5-17.5); Mean Corpuscular Hemoglobin 21.2 pg (28.0-32.0); Mean Corpuscular Hgb Conc. 29.9 g/dL (32.0-36.0); Mean Corpuscular Volume 70.9 fL (80.0-100.0); Platelet Count (auto) 451 10^3/uL (140-450); Red Blood Cells 4.54 10^6/uL (4.5-5.90); White Blood Cell 14.2 10^3/uL (4.4-10.8)
[2019-08-12 07:15] LABS: Red Cell Distribution Width 20.8 % (11.8-14.3)
[2019-08-12 07:16] LABS: Band Neutrophils % (manual) 0; Basophils % (manual) 0 (0.0-2.0); Blast Cells 0; Promyelocytes % 0; Reactive Lymphocytes 0
[2019-08-12 07:26] LABS: Albumin 1.9 g/dL (3.4-5.0); Calcium 7.9 mg/dL (8.5-10.1); Magnesium 2.1 mg/dL (1.6-2.6); Potassium 3.6 mmol/L (3.5-5.1)
[2019-08-12 07:29] LABS: BUN/Creatinine Ratio 23.6; Bilirubin, Total 0.8 mg/dL (0.2-1.0); Phosphorus 2.6 mg/dL (2.5-4.90); Total Protein 5.9 g/dL (6.4-8.2)
[2019-08-12 07:34] LABS: Eosinophils % (manual) 2 (0-7); Lymphocytes % (manual) 12 (10.0-50.0); Metamyelocytes % 1; Monocytes % (manual) 2 (0-12); Myelocytes % 4
[2019-08-12 09:06] VITALS: BP 127/73
[2019-08-12] MEDS: ENOXAPARIN SOD 40 MG/0.4 ML SYRINGE SC SCH (09:56)
[2019-08-12] MEDS: SODIUM CHLOR 0.9% PF (SALINE LOCK) 10ML VIAL/SYR IV SCH ×2 (09:57→22:14)
[2019-08-12] MEDS: IRON SUCROSE COMPLEX 200 MG in SODIUM CHL 0.9% 100 ML IV SCH (12:06)
[2019-08-12 13:15] VITALS: BP 140/86
[2019-08-12 16:38] VITALS: BP 129/67
--- NOTE | 2019-08-12 18:10 | NUR ---
PATIENT PATHOLOGY REPORT 1 OF 2 AVAILABLE IN CHART. REPORT 2 MAY BE AVAILABLE TOMORROW PER PATHOLOGY DEPARTMENT
--- NOTE | 2019-08-12 19:40 | NUR ---
open note assumed care of pt. upon etnering room pt awake, alert and oriented x4. pt on room air no distress noted or expressed. pt updated on plan of care. pt has tpn running to PICC. pt dressing to midline incision is clean dry and intact, pt wearing abdominal binder. pt has colostomy in place to left side of abdomen. pt bed locked, low and 2x rails up. call light in reach, pt encouraged to call as needed. this nurse to round q1hr and prn.
--- NOTE | 2019-08-12 19:50 | NUR ---
dr diaz at bedside.
[2019-08-12] MEDS ORDERED: TPN PER PHARMACY IV NR ×11 (20:00)
[2019-08-12 22:00] VITALS: BP 159/90
[2019-08-12] MEDS: HYDROcodone-ACET 5/325MG TAB PO PRN (23:04)
[2019-08-13] MEDS: ACCU-CHEK COMFORT CURVE STRIP VI SCH ×4 (00:28→18:16)
[2019-08-13] MEDS: HYDROmorphone HCL 2 MG/ML VL IV PRN ×5 (03:19→22:56)
[2019-08-13 05:00] VITALS: BP 116/80
[2019-08-13] MEDS: InsuLIN REG 1unit/0.01ml Soln (100units/ml) SC SCH ×4 (06:30→18:00)
[2019-08-13 07:00] LABS: Potassium 3.5 mmol/L (3.5-5.1)
[2019-08-13 07:09] LABS: Albumin 1.9 g/dL (3.4-5.0); BUN/Creatinine Ratio 17.5; Bilirubin, Total 0.6 mg/dL (0.2-1.0); Calcium 7.8 mg/dL (8.5-10.1); Magnesium 2.2 mg/dL (1.6-2.6); Phosphorus 3.1 mg/dL (2.5-4.90); Total Protein 6.1 g/dL (6.4-8.2)
--- NOTE | 2019-08-13 07:25 | NUR ---
Opening Shift Note Assumed care of patient, awake and alert. No S/S of distress/SOB or pain reported at this time. Instructed on POC and to call for assist PRN, call light within reach, midline abd dressing CDI, PICC to SOPHIA patent and benign, infusing TPN as ordered. will continue to monitor for changes Q1hr and PRN.
[2019-08-13] MEDS: ENOXAPARIN SOD 40 MG/0.4 ML SYRINGE SC SCH (08:44)
[2019-08-13 08:51] VITALS: BP 142/74
[2019-08-13] MEDS: SODIUM CHLOR 0.9% PF (SALINE LOCK) 10ML VIAL/SYR IV SCH ×2 (10:00→22:28)
--- NOTE | 2019-08-13 10:54 | NUR ---
PHYSICAL THERAPY AT BEDSIDE
--- NOTE | 2019-08-13 11:17 | NUR ---
FOLLOW UP ON PATHOLOGY REPORT SPOKE WITH BONNIE, STATES HE LEFT ONE ON CHART AND ONE IS STILL PENDING (SIGMOID COLON), [facility]
--- NOTE | 2019-08-13 11:40 | NUR ---
MD PHONE CALL DR RENNER CALLED FOR UPDATED, UPDATES GIVEN, NEW ORDERS RECEIVED TO TAPER OFF TPN, AND MAY CHANGE DRESSING, STATES HE WILL COME SEE PT SOON, CONT CARE
--- NOTE | 2019-08-13 12:44 | NUR ---
I faxed order for colostomy supplies to [facility]. I called [facility] Water Supervisor Rita [phone] and left message asking for which vendor to use for colostomy supplies.
[2019-08-13 13:00] VITALS: BP 146/67
--- NOTE | 2019-08-13 14:28 | NUR ---
DR RENNER AT BEDSIDE
[2019-08-13] MEDS ORDERED: FAMO20TA10 PO (14:33)
[2019-08-13] MEDS ORDERED: HYDR-4833 PO (14:33)
--- NOTE | 2019-08-13 15:38 | NUR ---
Nutrition Followup Note Wt 98.0 kg Pt was sleeping with no relatives at bedside when rounded this morning. Pt on TPN @ 77 ml/hr to provide 1860 calories, 100g protein and 1460 NPCs. Pt with adequate energy intake from PN support aeb 86% to 99% of est caloric needs. Protein intake from PN support is adequate aeb 106% to 133% protein needs. Pt with no distress per RN doc. Will continue to closely monitor pertinent labs, PO intake and skin status prn. Will followup in 2-3 days Est Energy needs: 7215-7887 kcals (20-23 kcal/kgBW) Est Protein needs: 75-94 gms/day (0.8-1.0 gm/kgBW) Will continue to monitor and reassess prn. Labs: Gluc 140 H, Ca 7.8 L, Alb 1.9 L BM: Pt last BM noted on 08/11 per RN doc. Skin: BS 19 low risk, full details in career development associate doc PES: 1) Increased nutrient needs r/t pt with no PO intake aeb pt currently NPO 2) Altered nutrition related lab values r/t current medical condition aeb hyperglycemia, severe albuminemia Comments Will continue to closely monitor pertinent labs, PO intake and skin status prn. Will followup in 2-3 days 1) Consider increasing TPN support to meet >75% of needs 2) Gradually advance pt to oral CCHO 60g diet when medically feasible and as tolerated 3) Once oral diet is initiated, if albumin continues trending down, consider Prostat 1 pkt BID 4) Continue current plan of care
[2019-08-13 16:20] VITALS: BP 140/86
--- NOTE | 2019-08-13 16:42 | NUR ---
D/C Planning Per SS consult for home health for colostomy supplies and teaching. Faxed clinical information to [facility], [facility], [facility] and Mariya. Per Pricilla Meraz patient has been accepted and service to start within 24-48hrs upon d/c day. Per Jose RENE they received authorization from [employer] [facility] and they will deliver colostomy supplies to patient and will contact patient for ETA . Obtain authorization from [facility] for home health [id number].
[2019-08-13] MEDS: ONDANSETRON HCL 4 MG/2 ML VIAL IV PRN (18:48)
[2019-08-13] MEDS ORDERED: TPN PER PHARMACY IV NR ×12 (20:00)
[2019-08-13 22:00] VITALS: BP 126/85
[2019-08-14] MEDS: ACCU-CHEK COMFORT CURVE STRIP VI SCH ×3 (00:16→12:00)
--- NOTE | 2019-08-14 02:35 | NUR ---
DRESSING CHANGE PER DR RENNER, DRESSING WAS CHANGED, SITE CLEANSED WITH NS AND PADDED DRY WITH STERILE GAUZE,, PT MEDICATED PRIOR, NOTED 29 WELL APPROXIMATED SRINIVASAN, INCISION LINE PINK, NO FOUL ODOR NOTED, COVERED WITH ABD PAD AND PRIMAPORE TAPE, PT TOLERATED WELL, CONT CARE
[2019-08-14] MEDS: HYDROmorphone HCL 2 MG/ML VL IV PRN ×3 (02:51→12:03)
--- NOTE | 2019-08-14 03:20 | NUR ---
PT CARE ENDORSED TO OMAYRA RN PT CURRENTLY AWAKE, AXOX4, NO DISTRESS NOTED AT THIS TIME
--- NOTE | 2019-08-14 03:22 | NUR ---
RECEIVED REPORT FROM CARMELA DUNCAN. PATIENT ASLEEP IN BED, NO S/S OF DISTRESS. BED IN LOWEST LOCKED POSITION, SIDE RAILS UP X 2, CALL LIGHT WITHIN REACH. WILL CONTINUE TO MONITOR PATIENT.
[2019-08-14 04:59] VITALS: BP 107/69
[2019-08-14] MEDS: InsuLIN REG 1unit/0.01ml Soln (100units/ml) SC SCH ×3 (06:00→12:00)
[2019-08-14 09:00] VITALS: BP 113/67
[2019-08-14] MEDS: SODIUM CHLOR 0.9% PF (SALINE LOCK) 10ML VIAL/SYR IV SCH (09:05)
--- NOTE | 2019-08-14 11:47 | NUR ---
SPOKE WITH DR. RENNER. PER DR. RENNER "IF PATIENT CAN TOLERATE LUNCH, HE CAN BE DISCHARGED HOME."
--- NOTE | 2019-08-14 12:45 | NUR ---
ORDERS RECEIVED FROM DR. RENNER TO REMOVE PICC LINE. PATIENT EDUCATED ON PICC REMOVAL. PICC LINE REMOVED USING CLEAN STERILE TECHNIQUE, PRESSURE DRESSING APPLIED. PATIENT EDUCATED ON AFTER CARE OF PICC LINE. PATIENT TOLERATED WELL. WILL CONTINUE TO MONITOR.
[2019-08-14 12:53] VITALS: BP 113/67
[2019-08-14 13:00] VITALS: BP 137/68
--- NOTE | 2019-08-14 13:26 | NUR ---
TELE BOX REMOVED AND TAKE TO OCULAR CARE TECHNOLOGIST ROOM
--- NOTE | 2019-08-14 14:00 | NUR ---
MRSA swab collected and sent
--- NOTE | 2019-08-14 14:15 | NUR ---
Discharge instructions given as ordered. Encourage to follow up with PMD as instructed. All questions and concerns addressed. Patient verbalized understanding. Medication reconciliation form completed and copy given to patient. Patient taken to vehicle via wheelchair with all personal belongings, accompanied by staff and family member. No distress noted at time of departure.
== END 2019-08-14 14:15 | disposition home health service (06) | DRG 231 ==
LOC: EDBD 09:49 → ER 09:49 → TELE 09:50 → DOU IN ICU 20:53 → TELE-CENTR 21:00 → DOU IN ICU 08-07 20:01 → TELE-WESTW 08-09 18:47
PROVIDERS: ADMIT Internal Medicine; ATTEND Internal Medicine
PROC: 0DBN8ZX Excision of Sigmoid Colon, Via Natural or Artificial Opening Endoscopic, Diagnostic (ICD-10-PCS; 2019-08-06)
PROC: 0DBP8ZX Excision of Rectum, Via Natural or Artificial Opening Endoscopic, Diagnostic (ICD-10-PCS; 2019-08-06)
PROC: 0DTN0ZZ Resection of Sigmoid Colon, Open Approach (ICD-10-PCS; 2019-08-07)
PROC: 0DN80ZZ Release Small Intestine, Open Approach (ICD-10-PCS; 2019-08-07)
PROC: 0DTJ0ZZ Resection of Appendix, Open Approach (ICD-10-PCS; 2019-08-07)
PROC: 0DTU0ZZ Resection of Omentum, Open Approach (ICD-10-PCS; 2019-08-07)
PROC: 30233N1 Transfusion of Nonautologous Red Blood Cells into Peripheral Vein, Percutaneous Approach (ICD-10-PCS; 2019-08-07)
PROC: 0DSM0ZZ Reposition Descending Colon, Open Approach (ICD-10-PCS; 2019-08-07)
PROC: 02HV33Z Insertion of Infusion Device into Superior Vena Cava, Percutaneous Approach (ICD-10-PCS; principal; 2019-08-09)
PROC: 3E0436Z Introduction of Nutritional Substance into Central Vein, Percutaneous Approach (ICD-10-PCS; 2019-08-09)
PROC: 02H633Z Insertion of Infusion Device into Right Atrium, Percutaneous Approach (ICD-10-PCS; 2019-08-10)
PROC: B5181ZA Fluoroscopy of Superior Vena Cava using Low Osmolar Contrast, Guidance (ICD-10-PCS; 2019-08-10)
PROC: B548ZZA Ultrasonography of Superior Vena Cava, Guidance (ICD-10-PCS; 2019-08-10)
PROC: 0JH63XZ Insertion of Tunneled Vascular Access Device into Chest Subcutaneous Tissue and Fascia, Percutaneous Approach (ICD-10-PCS; 2019-08-10)
DX: C18.7 Malignant neoplasm of sigmoid colon (principal); N17.0 Acute kidney failure with tubular necrosis; K63.3 Ulcer of intestine; C78.6 Secondary malignant neoplasm of retroperitoneum and peritoneum; C78.4 Secondary malignant neoplasm of small intestine; R18.8 Other ascites; E44.1 Mild protein-calorie malnutrition; K63.89 Other specified diseases of intestine; E86.0 Dehydration; K59.00 Constipation, unspecified; K62.1 Rectal polyp; I10 Essential (primary) hypertension; E11.9 Type 2 diabetes mellitus without complications; Z87.891 Personal history of nicotine dependence; K64.9 Unspecified hemorrhoids; N39.0 Urinary tract infection, site not specified; K66.0 Peritoneal adhesions (postprocedural) (postinfection); Z80.1 Family history of malignant neoplasm of trachea, bronchus and lung
CPT/HCPCS: 36415; 36569; 45384; 71045; 76942; 80048; 80053; 81001; 82040; 82378; 82962; 83605; 83615; 83735; 84100; 84478; 85007; 85025; 85027; 85610; 85730; 86850; 86900; 86901; 86920; 87040; 87081; 88302; 93005; 96361; 96365; 96367; 96375; 97110; 97116; 97530; 99152; 99153; C1788; G0378; J0690; J0696; J1756; J1815; J1885; J2250; J2405; J2543; J3480; J3490; J7131

== ENCOUNTER 2021-07-17 20:08 | Inpatient (IN) | payer MEDICAID ==
[~2021-07-17] VITALS: Ht 177.8 cm; Wt 87.6 kg
[~2021-07-17 20:08] MED LIST changes: -AMLO5TAB15 PO; -CIPR-173 PO; +FAMO20TA10 PO; +HYDR-4833 PO
[2021-07-17 21:13] LABS: Basophils # (auto) 0.1 10 ^3/uL (0-0.2); Basophils % (auto) 0.6 % (0.0-2.0); Eosinophils # (auto) 0 10 ^3/uL (0-0.8); Hematocrit 35.6 % (41.0-53.0); Hemoglobin 11.2 g/dL (13.5-17.5); Lymphocytes # (auto) 0.6 10 ^3/uL (0.4-5.4); Lymphocytes % (auto) 5.1 % (10.0-50.0); Mean Corpuscular Hemoglobin 22.5 pg (28.0-32.0); Mean Corpuscular Hgb Conc. 31.4 g/dL (32.0-36.0); Mean Corpuscular Volume 71.5 fL (80.0-100.0); Monocytes # (auto) 0.7 10 ^3/uL (0-1.3); Monocytes % (auto) 5.9 % (0.0-12.0); Neutrophils # (auto) 10.8 10 ^3/uL (1.6-8.6); Neutrophils % (auto) 88.4 % (37.0-80.0); Red Blood Cells 4.98 10^6/uL (4.5-5.90); Red Cell Distribution Width 19.1 % (11.8-14.3); White Blood Cell 12.2 10^3/uL (4.4-10.8)
[2021-07-17 21:28] LABS: INR 1.21 (0.9-1.15); Partial Thromboplastin Time 29.7 sec (23.6-33.0)
[2021-07-17 21:31] LABS: Albumin 2.7 g/dL (3.4-5.0); BUN/Creatinine Ratio 14.3; Calcium 8.8 mg/dL (8.5-10.1); Magnesium 2.3 mg/dL (1.6-2.6)
[2021-07-17 21:34] LABS: Bilirubin, Total 0.4 mg/dL (0.2-1.0); Total Protein 7.5 g/dL (6.4-8.2)
[2021-07-17] MEDS ORDERED: ONDANSETRON ODT 4 MG TAB PO ONE (22:30)
[2021-07-17] MEDS ORDERED: SODIUM CHLORIDE 0.9% 1,000 ML IV ONE (23:00)
[2021-07-17] MEDS ORDERED: PROCHLORPERAZINE EDISYLATE 5 MG/ML 2ML VIAL IV ONE (23:00)
[2021-07-18] MEDS ORDERED: IOHEXOL 300 MG/ML 100ML BOTTLE IJ ONE (00:10)
[2021-07-18] MEDS ORDERED: OMNIPAQUE ORAL SOLN 500ml 12mg/ml PO ONE (00:11)
[2021-07-18] MEDS: MORPHINE SULFATE INJ 2 MG/ml SYRG IV PRN ×3 (04:54→22:35)
[2021-07-18 05:35] VITALS: BP 150/107
[2021-07-18] MEDS: hydrALAZINE HCL 20 MG/ML VL IV PRN (06:07)
[2021-07-18] MEDS: SODIUM CHLORIDE 0.9% 1,000 ML IV SCH ×2 (06:07→11:00)
[2021-07-18] MEDS ORDERED: METO25TA36 PO (06:33)
[2021-07-18] MEDS ORDERED: AMLO-489 PO (06:33)
[2021-07-18] MEDS ORDERED: HYDR-4798 PO (06:33)
[2021-07-18] MEDS ORDERED: OLAN20TA PO (06:33)
[2021-07-18 08:15] VITALS: BP 143/104
[2021-07-18] MEDS: PANTOPRAZOLE 40 MG/10 ML VIAL INJ IV SCH (11:00)
[2021-07-18 12:57] VITALS: BP 141/102
[2021-07-18 17:30] VITALS: BP 134/103
[2021-07-18 22:00] VITALS: BP 117/91
[2021-07-19] MEDS: SODIUM CHLORIDE 0.9% 1,000 ML IV SCH (00:17)
[2021-07-19 05:00] VITALS: BP 109/86
[2021-07-19] MEDS: MORPHINE SULFATE INJ 2 MG/ml SYRG IV PRN ×3 (05:40→17:18)
[2021-07-19 06:01] LABS: Basophils # (auto) 0 10 ^3/uL (0-0.2); Eosinophils # (auto) 0.1 10 ^3/uL (0-0.8); Eosinophils % (auto) 0.5 % (0.0-7.0); Hemoglobin 10.1 g/dL (13.5-17.5); Mean Corpuscular Volume 72.4 fL (80.0-100.0)
[2021-07-19 06:03] LABS: Basophils % (auto) 0.3 % (0.0-2.0); Hematocrit 32.9 % (41.0-53.0); Lymphocytes % (auto) 9.2 % (10.0-50.0); Mean Corpuscular Hemoglobin 22.3 pg (28.0-32.0); Mean Corpuscular Hgb Conc. 30.8 g/dL (32.0-36.0); Monocytes % (auto) 9.3 % (0.0-12.0); Neutrophils # (auto) 8.9 10 ^3/uL (1.6-8.6); Neutrophils % (auto) 80.7 % (37.0-80.0); Red Blood Cells 4.54 10^6/uL (4.5-5.90); Red Cell Distribution Width 19.5 % (11.8-14.3)
[2021-07-19 06:17] LABS: Albumin 2.4 g/dL (3.4-5.0); Calcium 7.9 mg/dL (8.5-10.1); Potassium 3.2 mmol/L (3.5-5.1)
[2021-07-19 06:21] LABS: BUN/Creatinine Ratio 15.6; Bilirubin, Total 0.4 mg/dL (0.2-1.0); Total Protein 6.2 g/dL (6.4-8.2)
[2021-07-19 09:00] VITALS: BP 136/91
[2021-07-19] MEDS: PANTOPRAZOLE 40 MG/10 ML VIAL INJ IV SCH (09:57)
[2021-07-19 13:00] VITALS: BP 130/99
[2021-07-19 16:59] VITALS: BP 129/99
[2021-07-19 22:00] VITALS: BP 132/86
[2021-07-19] MEDS: MORPHINE SULFATE 4 MG/ML SYR/VIAL IV PRN (23:11)
[2021-07-20 05:00] VITALS: BP 127/95
[2021-07-20] MEDS: MORPHINE SULFATE 4 MG/ML SYR/VIAL IV PRN ×3 (06:12→22:01)
[2021-07-20] MEDS: PANTOPRAZOLE 40 MG/10 ML VIAL INJ IV SCH (09:04)
[2021-07-20 13:00] VITALS: BP 142/105
[2021-07-20 16:55] VITALS: BP 133/96
[2021-07-20 18:21] LABS: BUN/Creatinine Ratio 12.5; Calcium 8.4 mg/dL (8.5-10.1); Magnesium 2.2 mg/dL (1.6-2.6); Potassium 3.1 mmol/L (3.5-5.1)
[2021-07-20] MEDS: SODIUM CHLORIDE 0.9% 1,000 ML IV SCH ×2 (18:22→23:21)
[2021-07-20] MEDS: ONDANSETRON HCL 4 MG/2 ML VIAL IV PRN (20:54)
[2021-07-20 22:00] VITALS: BP 126/95
[2021-07-21] MEDS: MORPHINE SULFATE 4 MG/ML SYR/VIAL IV PRN ×2 (03:17→08:23)
[2021-07-21] MEDS: ONDANSETRON HCL 4 MG/2 ML VIAL IV PRN ×3 (03:23→18:01)
[2021-07-21] MEDS: hydrALAZINE HCL 20 MG/ML VL IV PRN (03:52)
[2021-07-21 05:00] VITALS: BP 157/113
[2021-07-21 09:00] VITALS: BP 141/104
[2021-07-21] MEDS: PANTOPRAZOLE 40 MG/10 ML VIAL INJ IV SCH (09:57)
[2021-07-21] MEDS: SODIUM CHLORIDE 0.9% 1,000 ML IV SCH ×2 (11:07→18:07)
[2021-07-21] MEDS ORDERED: HYDROmorphone HCL 2 MG/ML VL/or syr ONE (11:35)
[2021-07-21] MEDS: HYDROmorphone HCL 2 MG/ML VL/or syr IV PRN ×2 (11:42→18:05)
[2021-07-21 13:00] VITALS: BP 143/92
[2021-07-21 17:00] VITALS: BP 139/98
[2021-07-21 21:45] VITALS: BP 132/98
[2021-07-21 22:00] VITALS: BP 151/103
[2021-07-22] VITALS (7 sets, daily range): BP systolic 139–161; BP diastolic 93–108
[2021-07-22] MEDS: ONDANSETRON HCL 4 MG/2 ML VIAL IV PRN ×4 (00:47→20:01)
[2021-07-22] MEDS: HYDROmorphone HCL 2 MG/ML VL/or syr IV PRN ×5 (00:54→20:01)
[2021-07-22] MEDS ORDERED: PANTOPRAZOLE 40 MG/10 ML VIAL INJ IV SCH (01:15)
[2021-07-22] MEDS: hydrALAZINE HCL 20 MG/ML VL IV PRN ×2 (01:21→15:54)
[2021-07-22] MEDS: SODIUM CHLORIDE 0.9% 1,000 ML IV SCH (04:52)
[2021-07-22 05:34] LABS: Potassium 3.2 mmol/L (3.5-5.1)
[2021-07-22] MEDS: PANTOPRAZOLE 40 MG/10 ML VIAL INJ IV SCH ×2 (09:52→19:59)
[2021-07-22] MEDS ORDERED: METO-289 PO (11:05)
[2021-07-22] MEDS: D5W/SOD CHLO 0.9% 1,000 ML IV SCH ×2 (11:48→18:35)
[2021-07-22 11:56] LABS: Basophils # (auto) 0 10 ^3/uL (0-0.2); Basophils % (auto) 0.2 % (0.0-2.0); Eosinophils # (auto) 0 10 ^3/uL (0-0.8); Eosinophils % (auto) 0.3 % (0.0-7.0); Hemoglobin 9.7 g/dL (13.5-17.5); Lymphocytes # (auto) 0.5 10 ^3/uL (0.4-5.4); Mean Corpuscular Hgb Conc. 29.6 g/dL (32.0-36.0); Red Cell Distribution Width 19.5 % (11.8-14.3); White Blood Cell 12.3 10^3/uL (4.4-10.8)
[2021-07-22 11:57] LABS: Hematocrit 32.6 % (41.0-53.0); Lymphocytes % (auto) 4.2 % (10.0-50.0); Monocytes % (auto) 8.2 % (0.0-12.0); Neutrophils # (auto) 10.7 10 ^3/uL (1.6-8.6); Neutrophils % (auto) 87.1 % (37.0-80.0); Red Blood Cells 4.48 10^6/uL (4.5-5.90)
[2021-07-22 12:01] LABS: Mean Corpuscular Hemoglobin 21.6 pg (28.0-32.0); Mean Corpuscular Volume 72.7 fL (80.0-100.0)
[2021-07-22 12:12] LABS: BUN/Creatinine Ratio 10.5; Calcium 8.2 mg/dL (8.5-10.1); Potassium 3.3 mmol/L (3.5-5.1)
[2021-07-22] MEDS ORDERED: POTASSIUM CHL 20MEQ/100ML 100 ML IV ONE (12:30)
[2021-07-22] MEDS: ENOXAPARIN SOD 40 MG/0.4 ML SYRINGE SC SCH (12:37)
[2021-07-22] MEDS ORDERED: TPN PER PHARMACY 0 ML IV SCH (15:00)
[2021-07-22] MEDS ORDERED: AMINO ACID INFUSION IN D10W 1,000 ML IV NR (20:00)
[2021-07-22] MEDS: ACCU-CHEK COMFORT CURVE STRIP VI SCH (23:52)
[2021-07-22] MEDS: InsuLIN REG 1unit/0.01ml Soln (100units/ml) SC SCH (23:53)
[2021-07-23] MEDS ORDERED: DEXTROSE (50%) 50ML SYRG IV SCH
[2021-07-23] MEDS: HYDROmorphone HCL 2 MG/ML VL/or syr IV PRN ×5 (00:03→20:09)
[2021-07-23] MEDS: ONDANSETRON HCL 4 MG/2 ML VIAL IV PRN ×5 (00:03→20:09)
[2021-07-23] MEDS: D5W/SOD CHLO 0.9% 1,000 ML IV SCH ×2 (02:37→18:14)
[2021-07-23 05:00] VITALS: BP 155/102
[2021-07-23] MEDS: hydrALAZINE HCL 20 MG/ML VL IV PRN (05:16)
[2021-07-23] MEDS: ACCU-CHEK COMFORT CURVE STRIP VI SCH ×4 (05:18→23:59)
[2021-07-23] MEDS: InsuLIN REG 1unit/0.01ml Soln (100units/ml) SC SCH ×4 (05:18→23:59)
[2021-07-23 05:50] LABS: Albumin 2.3 g/dL (3.4-5.0); Calcium 7.6 mg/dL (8.5-10.1); Magnesium 2.1 mg/dL (1.6-2.6)
[2021-07-23 05:54] LABS: BUN/Creatinine Ratio 9.4; Bilirubin, Total 0.4 mg/dL (0.2-1.0); Phosphorus 1.8 mg/dL (2.5-4.90); Total Protein 5.8 g/dL (6.4-8.2)
[2021-07-23 08:00] VITALS: BP 141/96
[2021-07-23] MEDS ORDERED: POTASSIUM PHOSPHATE 44 MEQ in D5W 5% 250 ML IV ONE (08:45)
[2021-07-23 09:00] VITALS: BP 141/96
[2021-07-23] MEDS: ENOXAPARIN SOD 40 MG/0.4 ML SYRINGE SC SCH (10:18)
[2021-07-23] MEDS: PANTOPRAZOLE 40 MG/10 ML VIAL INJ IV SCH ×2 (10:19→20:08)
[2021-07-23 13:00] VITALS: BP 124/94
[2021-07-23 17:00] VITALS: BP 124/89
[2021-07-23] MEDS ORDERED: TPN PER PHARMACY IV NR ×8 (20:00)
[2021-07-23 22:00] VITALS: BP 138/92
[2021-07-24] MEDS: HYDROmorphone HCL 2 MG/ML VL/or syr IV PRN ×6 (00:09→21:52)
[2021-07-24] MEDS: ONDANSETRON HCL 4 MG/2 ML VIAL IV PRN ×6 (00:09→21:52)
[2021-07-24] MEDS: D5W/SOD CHLO 0.9% 1,000 ML IV SCH ×5 (02:24→22:21)
[2021-07-24] MEDS: InsuLIN REG 1unit/0.01ml Soln (100units/ml) SC SCH ×3 (04:27→18:00)
[2021-07-24] MEDS: ACCU-CHEK COMFORT CURVE STRIP VI SCH ×3 (04:27→18:58)
[2021-07-24 05:00] VITALS: BP 124/84
[2021-07-24 05:16] LABS: Magnesium 1.8 mg/dL (1.6-2.6)
[2021-07-24 05:23] LABS: Albumin 2.1 g/dL (3.4-5.0); BUN/Creatinine Ratio 10.4; Bilirubin, Total 0.4 mg/dL (0.2-1.0); Calcium 7.6 mg/dL (8.5-10.1); Phosphorus 2.5 mg/dL (2.5-4.90); Total Protein 5.7 g/dL (6.4-8.2)
[2021-07-24 06:06] LABS: Potassium 2.9 mmol/L (3.5-5.1)
[2021-07-24 08:00] VITALS: BP 125/93
[2021-07-24] MEDS: POTASSIUM CHL 20MEQ/100ML 100 ML IV SCH ×3 (08:54→13:46)
[2021-07-24] MEDS: PANTOPRAZOLE 40 MG/10 ML VIAL INJ IV SCH ×2 (10:28→20:15)
[2021-07-24] MEDS: ENOXAPARIN SOD 40 MG/0.4 ML SYRINGE SC SCH (10:29)
[2021-07-24 13:00] VITALS: BP 126/90
[2021-07-24 15:30] VITALS: BP 138/99
[2021-07-24] MEDS ORDERED: MAGNESIUM SULFATE 1GM/100ML 100 ML IV ONE (16:12)
[2021-07-24] MEDS: MAGNESIUM SULFATE 1GM/100ML 100 ML IV SCH ×2 (16:40→17:48)
[2021-07-24 17:00] VITALS: BP 144/100
[2021-07-24] MEDS ORDERED: MAGNESIUM SULFATE 1GM/100ML 100 ML IV SCH (18:00)
[2021-07-24] MEDS ORDERED: TPN PER PHARMACY IV NR ×8 (20:00)
[2021-07-24] MEDS: hydrALAZINE HCL 20 MG/ML VL IV PRN (20:16)
[2021-07-24 21:02] VITALS: BP 160/99
[2021-07-25] MEDS: HYDROmorphone HCL 2 MG/ML VL/or syr IV PRN ×5 (03:29→21:40)
[2021-07-25] MEDS: ONDANSETRON HCL 4 MG/2 ML VIAL IV PRN ×3 (03:29→14:58)
[2021-07-25 05:00] VITALS: BP 145/90
[2021-07-25 05:16] LABS: Albumin 2.2 g/dL (3.4-5.0); Calcium 7.5 mg/dL (8.5-10.1); Magnesium 2.5 mg/dL (1.6-2.6); Potassium 3.3 mmol/L (3.5-5.1)
[2021-07-25 05:19] LABS: Bilirubin, Total 0.3 mg/dL (0.2-1.0); Phosphorus 2.7 mg/dL (2.5-4.90); Total Protein 5.8 g/dL (6.4-8.2)
[2021-07-25] MEDS: InsuLIN REG 1unit/0.01ml Soln (100units/ml) SC SCH ×4 (05:44→18:00)
[2021-07-25] MEDS: D5W/SOD CHLO 0.9% 1,000 ML IV SCH ×2 (05:52→17:00)
[2021-07-25] MEDS: ACCU-CHEK COMFORT CURVE STRIP VI SCH ×5 (05:52→23:37)
[2021-07-25 09:00] VITALS: BP 149/97
[2021-07-25] MEDS ORDERED: POTASSIUM PHOSPHATE 22 MEQ in SODIUM CHL 0.9% 100 ML IV ONE (09:00)
[2021-07-25] MEDS: PANTOPRAZOLE 40 MG/10 ML VIAL INJ IV SCH ×2 (10:17→21:38)
[2021-07-25] MEDS: ENOXAPARIN SOD 40 MG/0.4 ML SYRINGE SC SCH (10:17)
[2021-07-25 13:00] VITALS: BP 144/96
[2021-07-25 17:00] VITALS: BP 138/102
[2021-07-25] MEDS: hydrALAZINE HCL 20 MG/ML VL IV PRN (17:00)
[2021-07-25] MEDS ORDERED: TPN PER PHARMACY IV NR ×8 (20:00)
[2021-07-25 21:30] VITALS: BP 145/98
[2021-07-26] MEDS: HYDROmorphone HCL 2 MG/ML VL/or syr IV PRN ×5 (01:31→21:57)
[2021-07-26 05:00] VITALS: BP 129/93
[2021-07-26] MEDS: D5W/SOD CHLO 0.9% 1,000 ML IV SCH ×3 (05:18→21:40)
[2021-07-26 05:55] LABS: Albumin 2.2 g/dL (3.4-5.0); Calcium 7.8 mg/dL (8.5-10.1); Magnesium 2.5 mg/dL (1.6-2.6); Potassium 3.4 mmol/L (3.5-5.1)
[2021-07-26 05:59] LABS: Bilirubin, Total 0.3 mg/dL (0.2-1.0)
[2021-07-26] MEDS: InsuLIN REG 1unit/0.01ml Soln (100units/ml) SC SCH ×4 (06:00→17:58)
[2021-07-26] MEDS: ACCU-CHEK COMFORT CURVE STRIP VI SCH ×3 (06:05→17:58)
[2021-07-26 08:00] VITALS: BP 136/96
[2021-07-26 09:00] VITALS: BP 136/96
[2021-07-26] MEDS ORDERED: POTASSIUM CHL 20MEQ/100ML 100 ML IV ONE (09:45)
[2021-07-26] MEDS: ENOXAPARIN SOD 40 MG/0.4 ML SYRINGE SC SCH (11:09)
[2021-07-26] MEDS: PANTOPRAZOLE 40 MG/10 ML VIAL INJ IV SCH ×2 (11:09→21:40)
[2021-07-26 12:47] VITALS: BP 139/101
[2021-07-26 17:39] VITALS: BP 148/101
[2021-07-26] MEDS ORDERED: POTASSIUM PHOSPHATE IV NR ×8 (20:00)
[2021-07-26] MEDS ORDERED: FAT EMULSION IV NR ×8 (20:00)
[2021-07-26] MEDS ORDERED: POTASSIUM ACETATE IV NR ×8 (20:00)
[2021-07-26] MEDS ORDERED: [UNRECOGNIZED DRUG - OTHER] IV NR ×8 (20:00)
[2021-07-26 22:00] VITALS: BP 141/96
[2021-07-27] MEDS: InsuLIN REG 1unit/0.01ml Soln (100units/ml) SC SCH ×4 (02:29→17:22)
[2021-07-27] MEDS: ACCU-CHEK COMFORT CURVE STRIP VI SCH ×4 (02:29→17:21)
[2021-07-27] MEDS: HYDROmorphone HCL 2 MG/ML VL/or syr IV PRN ×6 (02:38→21:07)
[2021-07-27 05:00] VITALS: BP 146/91
[2021-07-27 06:58] LABS: Potassium 3.8 mmol/L (3.5-5.1)
[2021-07-27 07:05] LABS: Albumin 2.2 g/dL (3.4-5.0); BUN/Creatinine Ratio 13.7; Bilirubin, Total 0.3 mg/dL (0.2-1.0); Phosphorus 3.5 mg/dL (2.5-4.90)
[2021-07-27 09:00] VITALS: BP 124/90
[2021-07-27] MEDS: D5W/SOD CHLO 0.9% 1,000 ML IV SCH ×2 (09:30→18:00)
[2021-07-27] MEDS: ENOXAPARIN SOD 40 MG/0.4 ML SYRINGE SC SCH (09:48)
[2021-07-27] MEDS: PANTOPRAZOLE 40 MG/10 ML VIAL INJ IV SCH ×2 (09:48→21:05)
[2021-07-27 12:51] VITALS: BP 130/87
[2021-07-27 17:00] VITALS: BP 141/103
[2021-07-27] MEDS: hydrALAZINE HCL 20 MG/ML VL IV PRN (17:43)
[2021-07-27] MEDS ORDERED: SOD CHL 0.45% 1,000 ML IV SCH ×2 (19:00)
[2021-07-27] MEDS ORDERED: TPN PER PHARMACY IV NR ×8 (20:00)
[2021-07-27 22:00] VITALS: BP 127/79
[2021-07-28] VITALS (7 sets, daily range): BP systolic 121–151; BP diastolic 86–105
[2021-07-28] MEDS: ACCU-CHEK COMFORT CURVE STRIP VI SCH ×5 (00:10→23:57)
[2021-07-28] MEDS: HYDROmorphone HCL 2 MG/ML VL/or syr IV PRN ×4 (00:32→17:33)
[2021-07-28 06:08] LABS: Albumin 2.3 g/dL (3.4-5.0); Calcium 8.3 mg/dL (8.5-10.1); Magnesium 2.2 mg/dL (1.6-2.6); Potassium 3.8 mmol/L (3.5-5.1)
[2021-07-28 06:11] LABS: BUN/Creatinine Ratio 23.8; Phosphorus 3.5 mg/dL (2.5-4.90)
[2021-07-28] MEDS: InsuLIN REG 1unit/0.01ml Soln (100units/ml) SC SCH ×5 (06:26→23:58)
[2021-07-28] MEDS: PANTOPRAZOLE 40 MG/10 ML VIAL INJ IV SCH ×2 (10:18→22:43)
[2021-07-28] MEDS: ENOXAPARIN SOD 40 MG/0.4 ML SYRINGE SC SCH (10:20)
[2021-07-28] MEDS: HYDROcodone-ACET 10/325MG TAB PO PRN ×2 (16:18→22:50)
[2021-07-28] MEDS ORDERED: TPN PER PHARMACY IV NR ×9 (20:00)
[2021-07-28] MEDS: SENNA 8.6 MG TAB PO SCH (22:44)
[2021-07-29] MEDS: HYDROmorphone HCL 2 MG/ML VL/or syr IV PRN ×4 (00:02→21:11)
[2021-07-29 05:00] VITALS: BP 117/75
[2021-07-29] MEDS: ACCU-CHEK COMFORT CURVE STRIP VI SCH ×3 (06:45→17:21)
[2021-07-29] MEDS: InsuLIN REG 1unit/0.01ml Soln (100units/ml) SC SCH ×3 (06:45→17:21)
[2021-07-29 08:17] LABS: Albumin 2.3 g/dL (3.4-5.0); BUN/Creatinine Ratio 22.6; Calcium 8.3 mg/dL (8.5-10.1); Magnesium 2.3 mg/dL (1.6-2.6); Potassium 4.1 mmol/L (3.5-5.1)
[2021-07-29 08:19] LABS: Bilirubin, Total 0.3 mg/dL (0.2-1.0); Total Protein 6.5 g/dL (6.4-8.2)
[2021-07-29 08:53] VITALS: BP 115/84
[2021-07-29] MEDS: PANTOPRAZOLE 40 MG/10 ML VIAL INJ IV SCH ×2 (09:02→22:16)
[2021-07-29] MEDS: ENOXAPARIN SOD 40 MG/0.4 ML SYRINGE SC SCH (09:03)
[2021-07-29 13:00] VITALS: BP 104/73
[2021-07-29] MEDS: HYDROcodone-ACET 10/325MG TAB PO PRN ×2 (13:03→18:15)
[2021-07-29 17:00] VITALS: BP 123/95
[2021-07-29 22:00] VITALS: BP 116/87
[2021-07-29] MEDS: SENNA 8.6 MG TAB PO SCH (22:17)
[2021-07-30] MEDS: HYDROcodone-ACET 10/325MG TAB PO PRN ×2 (03:25→14:28)
[2021-07-30 05:00] VITALS: BP 122/86
[2021-07-30 05:03] LABS: Eosinophils # (auto) 0.3 10 ^3/uL (0-0.8); Eosinophils % (auto) 3.3 % (0.0-7.0); Hematocrit 28.2 % (41.0-53.0); Lymphocytes # (auto) 1.1 10 ^3/uL (0.4-5.4); Mean Corpuscular Volume 69.8 fL (80.0-100.0); Neutrophils # (auto) 6.8 10 ^3/uL (1.6-8.6); Red Blood Cells 4.04 10^6/uL (4.5-5.90)
[2021-07-30 05:05] LABS: Basophils # (auto) 0.1 10 ^3/uL (0-0.2); Basophils % (auto) 1.1 % (0.0-2.0); Hemoglobin 8.7 g/dL (13.5-17.5); Lymphocytes % (auto) 11.7 % (10.0-50.0); Mean Corpuscular Hemoglobin 21.6 pg (28.0-32.0); Monocytes # (auto) 0.9 10 ^3/uL (0-1.3); Monocytes % (auto) 10.1 % (0.0-12.0); Neutrophils % (auto) 73.8 % (37.0-80.0); Red Cell Distribution Width 19.3 % (11.8-14.3); White Blood Cell 9.2 10^3/uL (4.4-10.8)
[2021-07-30 05:26] LABS: Calcium 8.2 mg/dL (8.5-10.1); Potassium 4.1 mmol/L (3.5-5.1)
[2021-07-30] MEDS: HYDROmorphone HCL 2 MG/ML VL/or syr IV PRN ×4 (05:34→20:30)
[2021-07-30] MEDS: InsuLIN REG 1unit/0.01ml Soln (100units/ml) SC SCH ×4 (05:40→18:00)
[2021-07-30] MEDS: ACCU-CHEK COMFORT CURVE STRIP VI SCH ×4 (05:40→18:59)
[2021-07-30 09:00] VITALS: BP 125/86
[2021-07-30] MEDS: ENOXAPARIN SOD 40 MG/0.4 ML SYRINGE SC SCH (11:13)
[2021-07-30] MEDS: PANTOPRAZOLE 40 MG/10 ML VIAL INJ IV SCH ×2 (11:13→22:07)
[2021-07-30 13:00] VITALS: BP 116/85
[2021-07-30] MEDS: ONDANSETRON HCL 4 MG/2 ML VIAL IV PRN ×2 (16:05→23:43)
[2021-07-30 17:02] VITALS: BP 119/86
[2021-07-30] MEDS: SENNA 8.6 MG TAB PO SCH (22:08)
[2021-07-31] MEDS: ONDANSETRON HCL 4 MG/2 ML VIAL IV PRN ×2 (04:06→14:32)
[2021-07-31] MEDS: HYDROmorphone HCL 2 MG/ML VL/or syr IV PRN ×3 (04:06→14:28)
[2021-07-31 05:00] VITALS: BP 120/69
[2021-07-31] MEDS: InsuLIN REG 1unit/0.01ml Soln (100units/ml) SC SCH ×4 (06:00→18:00)
[2021-07-31] MEDS: ACCU-CHEK COMFORT CURVE STRIP VI SCH ×4 (06:30→18:00)
[2021-07-31 09:00] VITALS: BP 117/82
[2021-07-31] MEDS: ENOXAPARIN SOD 40 MG/0.4 ML SYRINGE SC SCH (09:42)
[2021-07-31] MEDS: PANTOPRAZOLE 40 MG/10 ML VIAL INJ IV SCH (09:42)
[2021-07-31 13:00] VITALS: BP 112/78
[2021-07-31 13:33] VITALS: BP 151/100
[2021-07-31 14:58] VITALS: BP 121/69
== END 2021-07-31 17:25 | disposition home or self-care (01) | DRG 247 ==
LOC: ER 20:08 → EDBD 20:08 → OVERFLOW 07-18 00:38 → WEST WING 07-18 05:35 → TELE-WESTW 07-22 11:11
PROVIDERS: ADMIT Nurse Practitioner; ATTEND Hospitalist
DX: K56.609 Unspecified intestinal obstruction, unspecified as to partial versus complete obstruction (principal); D61.818 Other pancytopenia; K59.39 Other megacolon; K94.03 Colostomy malfunction; E83.39 Other disorders of phosphorus metabolism; E11.9 Type 2 diabetes mellitus without complications; E87.6 Hypokalemia; Z20.822 Contact with and (suspected) exposure to COVID-19; F12.90 Cannabis use, unspecified, uncomplicated; I10 Essential (primary) hypertension; Z85.038 Personal history of other malignant neoplasm of large intestine; Z90.49 Acquired absence of other specified parts of digestive tract; Z82.49 Family history of ischemic heart disease and other diseases of the circulatory system; Z80.1 Family history of malignant neoplasm of trachea, bronchus and lung; Z92.21 Personal history of antineoplastic chemotherapy; Z92.3 Personal history of irradiation; Z88.8 Allergy status to other drugs, medicaments and biological substances
CPT/HCPCS: 36415; 71045; 74018; 74176; 74177; 80048; 80053; 80069; 82150; 82962; 83605; 83690; 83735; 84100; 84478; 84484; 85025; 85610; 85730; 93005; 96361; 96374; C9113; G0378; J1642; J1815; J2405; J3480; J7042; J7060; J7131; Q0162

== ENCOUNTER 2021-09-28 02:32 | Inpatient (IN) | payer OTHER, MEDICAID ==
[~2021-09-28] VITALS: Ht 177.8 cm; Wt 81.8 kg
[~2021-09-28 02:32] MED LIST changes: +AMLO-489 PO; -FAMO20TA10 PO; +HYDR-4798 PO; -HYDR-4833 PO; +METO-289 PO; +OLAN20TA PO
[2021-09-28] MEDS ORDERED: PIPERACILLIN-TAZOB 3.375GM 100 ML IV ONE (03:00)
[2021-09-28] MEDS ORDERED: VANCOMYCIN 1GM/250ML 250 ML IV ONE (03:00)
[2021-09-28] MEDS ORDERED: SODIUM CHLORIDE 0.9% 1,000 ML IVB ONE (03:00)
[2021-09-28] MEDS ORDERED: SODIUM CHLORIDE 0.9% 2,000 ML IVB ONE (03:30)
[2021-09-28 04:04] LABS: Basophils # (auto) 0 10 ^3/uL (0-0.2); Eosinophils # (auto) 0 10 ^3/uL (0-0.8); Mean Corpuscular Hemoglobin 20.7 pg (28.0-32.0); Nucleated Red Blood Cells % 0.1 %
[2021-09-28 04:05] LABS: Basophils % (auto) 0.4 % (0.0-2.0); Hematocrit 47.6 % (41.0-53.0); Hemoglobin 14.1 g/dL (13.5-17.5); Lymphocytes # (auto) 0.5 10 ^3/uL (0.4-5.4); Lymphocytes % (auto) 4.8 % (10.0-50.0); Mean Corpuscular Hgb Conc. 29.6 g/dL (32.0-36.0); Monocytes # (auto) 0.4 10 ^3/uL (0-1.3); Monocytes % (auto) 3.9 % (0.0-12.0); Neutrophils # (auto) 8.7 10 ^3/uL (1.6-8.6); Neutrophils % (auto) 90.9 % (37.0-80.0); Red Blood Cells 6.81 10^6/uL (4.5-5.90); White Blood Cell 9.6 10^3/uL (4.4-10.8)
[2021-09-28 04:07] LABS: Red Cell Distribution Width 26.6 % (11.8-14.3)
[2021-09-28 04:22] LABS: Albumin 1.7 g/dL (3.4-5.0); Calcium 7.3 mg/dL (8.5-10.1); Potassium 3.9 mmol/L (3.5-5.1)
[2021-09-28 04:25] LABS: BUN/Creatinine Ratio 20.2; Total Protein 6.3 g/dL (6.4-8.2)
[2021-09-28] MEDS ORDERED: VANCOMYCIN PER PHARMACY 0 MG IV SCH (05:00)
[2021-09-28] MEDS ORDERED: SODIUM CHLORIDE 0.9% 1,000 ML IV SCH (05:00)
[2021-09-28] MEDS ORDERED: HYDROcodone-ACET 5/325MG TAB PO PRN (05:00)
[2021-09-28] MEDS ORDERED: ONDANSETRON HCL 4 MG/2 ML VIAL IV PRN (05:00)
[2021-09-28] MEDS ORDERED: DOCUSATE SOD 100 MG CAP PO PRN (05:00)
[2021-09-28] MEDS ORDERED: DEXTROSE (50%) 50ML SYRG IV PRN (05:00)
[2021-09-28] MEDS ORDERED: ALBUMIN 25% 50 ML IV SCH (05:00)
[2021-09-28] MEDS ORDERED: ACETAMINOPHEN 325 MG TAB PO PRN ×2 (05:00→06:30)
[2021-09-28] MEDS ORDERED: NOREPINEPHRINE 8 MG/250ML KIT 250 ML IV ONE (05:06)
[2021-09-28] MEDS ORDERED: NOREPINEPHRINE 8 MG/250ML KIT 250 ML IV SCH (05:15)
[2021-09-28 05:25] LABS: Urine Bacteria MANY /hpf (None Seen); Urine Blood 1+ /uL (Negative); Urine Mucus FEW (None Seen); Urine Specific Gravity 1.022 (1.001-1.035); Urine Sperm PRESENT /hpf (None Seen); Urine WBC 17 /hpf (0 - 3)
[2021-09-28] MEDS ORDERED: VASOPRESSIN 50 UNITS in D5W 5% 247.5 ML IV SCH (05:45)
[2021-09-28] MEDS ORDERED: NITROGLYCERIN 0.4 MG SL TAB SL PRN (05:45)
[2021-09-28] MEDS ORDERED: MORPHINE SULFATE INJ 2 MG/ml SYRG IV PRN (05:45)
[2021-09-28] MEDS ORDERED: VASOPRESSIN 20 UNIT/ML ONE (05:46)
[2021-09-28] MEDS ORDERED: HYDROmorphone HCL 2 MG/ML VL/or syr IV ONE (06:30)
[2021-09-28] MEDS ORDERED: HYDROmorphone HCL 2 MG/ML VL/or syr IV PRN (06:30)
[2021-09-28 06:38] LABS: Hematocrit 36.2 % (41.0-53.0); Hemoglobin 10.8 g/dL (13.5-17.5); Mean Corpuscular Hemoglobin 21.3 pg (28.0-32.0); Mean Corpuscular Hgb Conc. 29.9 g/dL (32.0-36.0); Mean Corpuscular Volume 71.2 fL (80.0-100.0); Red Blood Cells 5.08 10^6/uL (4.5-5.90); White Blood Cell 7.8 10^3/uL (4.4-10.8)
[2021-09-28 06:48] LABS: Albumin 1.1 g/dL (3.4-5.0); Calcium 6.3 mg/dL (8.5-10.1); Potassium 3.1 mmol/L (3.5-5.1)
[2021-09-28 06:50] LABS: BUN/Creatinine Ratio 18.2
[2021-09-28 06:52] LABS: Bilirubin, Total 1.2 mg/dL (0.2-1.0)
[2021-09-28] MEDS ORDERED: InsuLIN REG 1unit/0.01ml Soln (100units/ml) SC SCH (07:00)
[2021-09-28] MEDS ORDERED: ACCU-CHEK COMFORT CURVE STRIP VI SCH (07:00)
[2021-09-28 07:06] LABS: Red Cell Distribution Width 25.6 % (11.8-14.3)
[2021-09-28 07:07] LABS: Basophils % (manual) 0 (0.0-2.0); Blast Cells 0; Promyelocytes % 0; Reactive Lymphocytes 0
[2021-09-28] MEDS ORDERED: PHENYLEPHRINE IV 250 ML IV SCH ×2 (07:15→08:45)
[2021-09-28 07:49] LABS: Band Neutrophils % (manual) 45; Eosinophils % (manual) 1 (0-7); Lymphocytes % (manual) 13 (10.0-50.0); Metamyelocytes % 1; Monocytes % (manual) 5 (0-12); Myelocytes % 2
[2021-09-28 08:00] VITALS: BP 119/72
[2021-09-28] MEDS ORDERED: POTASSIUM CHLORIDE 20 MEQ, LIDOCAINE 1% (LOCAL ANESTH.) 2 ML in SODIUM CHL 0.9% 100 ML IV ONE (08:00)
[2021-09-28 08:10] VITALS: BP 119/72
[2021-09-28 08:30] VITALS: BP 232/117
[2021-09-28 08:31] VITALS: BP 52/31
[2021-09-28 08:44] VITALS: BP 47/21
[2021-09-28] MEDS ORDERED: FAMOTIDINE (10MG/ML) 2ML VL IV SCH (10:00)
[2021-09-28] MEDS ORDERED: ENOXAPARIN SOD 40 MG/0.4 ML SYRINGE SC SCH (10:00)
[2021-09-28] MEDS ORDERED: PIPERACILLIN-TAZOB 2.25GM 50 ML IV SCH (12:00)
== END 2021-09-28 11:35 | DRG 871 ==
LOC: ER 02:32 → EDUNIT# 02:32 → EDBD 02:32 → TELE 05:36 → ICU WEST 08:04
PROVIDERS: ADMIT Nurse Practitioner Family; ATTEND Internal Medicine
PROC: 05H933Z Insertion of Infusion Device into Right Brachial Vein, Percutaneous Approach (ICD-10-PCS; principal; 2021-09-28)
PROC: B54MZZA Ultrasonography of Right Upper Extremity Veins, Guidance (ICD-10-PCS; 2021-09-28)
DX: A41.9 Sepsis, unspecified organism (principal); E43 Unspecified severe protein-calorie malnutrition; J96.00 Acute respiratory failure, unspecified whether with hypoxia or hypercapnia; K63.1 Perforation of intestine (nontraumatic); K65.9 Peritonitis, unspecified; R65.21 Severe sepsis with septic shock; E87.1 Hypo-osmolality and hyponatremia; R18.8 Other ascites; C18.9 Malignant neoplasm of colon, unspecified; C34.90 Malignant neoplasm of unspecified part of unspecified bronchus or lung; C80.0 Disseminated malignant neoplasm, unspecified; J98.11 Atelectasis; E11.9 Type 2 diabetes mellitus without complications; Z20.822 Contact with and (suspected) exposure to COVID-19; E88.09 Other disorders of plasma-protein metabolism, not elsewhere classified; I10 Essential (primary) hypertension; Z80.1 Family history of malignant neoplasm of trachea, bronchus and lung; Z68.25 Body mass index [BMI] 25.0-25.9, adult; Z82.49 Family history of ischemic heart disease and other diseases of the circulatory system; Z85.038 Personal history of other malignant neoplasm of large intestine; Z93.3 Colostomy status; Z88.8 Allergy status to other drugs, medicaments and biological substances; E86.0 Dehydration; K59.00 Constipation, unspecified
CPT/HCPCS: 36415; 36600; 74176; 80053; 81001; 82805; 83036; 83605; 83735; 85007; 85025; 85027; 87040; 87077; 87081; 87186; 93005; 93970; 96365; 99291; G0378; J2001; J2543; J7060